=== PATIENT | male | born 1955 | race Caucasian/White ===

== ENCOUNTER 2019-02-21 07:01 | Day surgery (SDC) | payer MEDICARE, OTHER ==
[2019-02-21 07:52] VITALS: BMI 27.3
[2019-02-21 10:10] VITALS: TEMP 98
[2019-02-21 13:57] VITALS: BP 137/76; PULSE 67
--- NOTE | 2019-02-23 13:50 | PATH ---
Surgical Pathology Report Patient Name: DAREN GUZMAN [facility]. Rec. #: [id number] /Age/Gender: 1955 (Age: 63) / M Account: [id number] Location: [facility]-ENDOSCOPY Taken: 02/21/2019 Received: 02/21/2019 Reported: 02/23/2019 Physicians: Umang Thomson M.D. Specimen(s) Received A: SPLENIC FLEXURE B: TRANSVERSE COLON C: RECTOSIGMOID COLON D: HEPATIC FLEXURE Clinical History Screening Final Diagnosis A. SPLENIC FLEXURE POLYP, POLYPECTOMY: TUBULOVILLOUS ADENOMA. B. TRANSVERSE COLON POLYP, POLYPECTOMY: TUBULOVILLOUS ADENOMA. C. RECTOSIGMOID COLON POLYP, POLYPECTOMY: TUBULOVILLOUS ADENOMA. D. HEPATIC FLEXURE POLYP, POLYPECTOMY: TUBULOVILLOUS ADENOMA, MULTIPLE FRAGMENTS. Note: Intradepartmental case reviewed with concordance on diagnosis. Electronically Signed Brian Bernard M.D. Gross Description A. Received in formalin labeled "polyps at splenic flexure," is a 2.3 x 1.5 x 0.3 cm aggregate of church, irregular to polypoid portions of soft tissue. The formalin is filtered and the specimen is entirely submitted in one cassette. B. Received in formalin, labeled "polyp transverse colon" is a church, irregular portion of soft tissue measuring 0.2 cm. in greatest dimension. The specimen is submitted in toto in one cassette. C. Received in formalin labeled "polyp rectosigmoid," is a 2.2 x 1.7 x 0.6 cm church, polypoid portion of soft tissue. The base is inked blue and the specimen is bisected. The specimen is entirely submitted in 2 cassettes. D. Received in formalin labeled "polyp hepatic flexure," are 3 church, polypoid portions of soft tissue ranging from 1.2 x 0.8 x 0.6 cm to 1.7 x 1.3 x 0.6 cm. The specimens are sectioned and entirely submitted in 3 cassettes as follows: 1-3-one bisected polyp each (#2 and #3 broke apart upon sectioning). DL/02/21/2019 saudi02/21/2019
== END 2019-02-21 11:45 | disposition home or self-care (01) ==
LOC: JASU-ENDO 07:01
PROVIDERS: ATTEND Internal Medicine Gastroenterology
PROC: 0DBL8ZX Excision of Transverse Colon, Via Natural or Artificial Opening Endoscopic, Diagnostic (ICD-10-PCS; 2019-02-21)
PROC: 3E0H8GC Introduction of Other Therapeutic Substance into Lower GI, Via Natural or Artificial Opening Endoscopic (ICD-10-PCS; 2019-02-21)
PROC: 0DBN8ZX Excision of Sigmoid Colon, Via Natural or Artificial Opening Endoscopic, Diagnostic (ICD-10-PCS; principal; 2019-02-21 09:00)
DX: Z51.11 Encounter for antineoplastic chemotherapy (principal); D37.4 Neoplasm of uncertain behavior of colon; I10 Essential (primary) hypertension; E11.9 Type 2 diabetes mellitus without complications; J44.9 Chronic obstructive pulmonary disease, unspecified
CPT/HCPCS: 82962; 88305-TC

== ENCOUNTER 2019-05-02 06:35 | Day surgery (SDC) | payer MEDICARE, OTHER ==
[2019-05-02 07:41] VITALS: TEMP 97.8; BMI 27.3
[2019-05-02 10:03] VITALS: BP 167/79; PULSE 61
--- NOTE | 2019-05-03 15:24 | PATH ---
Surgical Pathology Report Patient Name: DAREN GUZMAN [facility]. Rec. #: [id number] /Age/Gender: 1955 (Age: 63) / M Account: [id number] Location: U-ENDOSCOPY Taken: 05/02/2019 Received: 05/02/2019 Reported: 05/03/2019 Physicians: Umang Thomson M.D. Specimen(s) Received A: BX LEFT COLON POLYP B: SPLENIC FLEXURE POLYP BIOPSY C: BX HEPATIC FLEXURE POLYP Clinical History History of large colonic polyp Postoperative diagnosis: Colonic polyps Final Diagnosis A. LEFT COLON POLYP, POLYPECTOMY: TUBULOVILLOUS ADENOMA. B. SPLENIC FLEXURE POLYP, POLYPECTOMY: TUBULAR ADENOMA. C. HEPATIC FLEXURE POLYP, POLYPECTOMY: TUBULOVILLOUS ADENOMA. Electronically Signed Brian Bernard M.D. Gross Description A. Received in formalin, labeled "left colon polyp" is a church, polypoid portion of soft tissue measuring 0.9 cm. in greatest dimension. The specimen is submitted in toto in one cassette. B. Received in formalin, labeled "splenic flexure polyp" is a church, polypoid portion of soft tissue measuring 0.8 cm. in greatest dimension. The specimen is submitted in toto in one cassette. C. Received in formalin labeled "hepatic flexure polyp," is a 2.3 x 2.2 x 0.3 cm aggregate of church, irregular to polypoid soft tissue fragments. The formalin is filtered and the specimen is entirely submitted in one cassette. /05/02/2019 saudi05/02/2019
== END 2019-05-02 09:55 | disposition home or self-care (01) ==
LOC: JASU-ENDO 06:35
PROVIDERS: ATTEND Internal Medicine Gastroenterology
PROC: 0DBL8ZX Excision of Transverse Colon, Via Natural or Artificial Opening Endoscopic, Diagnostic (ICD-10-PCS; 2019-05-02)
PROC: 3E0H8GC Introduction of Other Therapeutic Substance into Lower GI, Via Natural or Artificial Opening Endoscopic (ICD-10-PCS; 2019-05-02)
PROC: 0DBG8ZX Excision of Left Large Intestine, Via Natural or Artificial Opening Endoscopic, Diagnostic (ICD-10-PCS; principal; 2019-05-02 08:00)
DX: D12.3 Benign neoplasm of transverse colon (principal); D12.4 Benign neoplasm of descending colon; Z86.010 Personal history of colon polyps; E11.9 Type 2 diabetes mellitus without complications; Z79.84 Long term (current) use of oral hypoglycemic drugs; I10 Essential (primary) hypertension; J44.9 Chronic obstructive pulmonary disease, unspecified; I25.2 Old myocardial infarction
CPT/HCPCS: 88305-TC

== ENCOUNTER 2021-04-19 10:25 | Inpatient (IN) | payer MEDICARE, OTHER ==
[2021-04-19 11:52] LABS: BASO % 1.2 % (0-2.0); HEMATOCRIT 36.1 % (35.4-49); LYMPH % 14.3 % (8-40); MCH 26.8 pg (25.7-33.7); MCHC 33.2 g/dl (32.0-35.9); MEAN CELL VOLUME 80.7 fl (80-96); MEAN PLT VOLUME 7.8 fl (7.5-11.1); MONO % 6.4 % (3.8-10.2); NEUT % 77.1 % (42.8-82.8); PLATELET COUNT 283 10^3/uL (134-434); RBC 4.48 M/mm3 (4.00-5.60); RDW 13.1 % (11.9-15.9); WHITE BLOOD COUNT 8.9 K/mm3 (4.0-10.0)
[2021-04-19 12:12] LABS: CHLORIDE 94 mmol/L (98-107); SODIUM 133 mmol/L (136-145)
[2021-04-19 12:14] LABS: BLOOD UREA NITROGEN 24.7 mg/dL (7-18); CALCIUM 8.7 mg/dL (8.5-10.1)
[2021-04-19 12:15] LABS: ANION GAP 8 MMOL/L (8-16); CO2 31 mmol/L (21-32)
[2021-04-19 12:18] LABS: CREATININE 1.8 mg/dL (0.55-1.3); SGOT/AST 10 U/L (15-37); SGPT/ALT 17 U/L (13-61)
[2021-04-19 12:20] LABS: BILIRUBIN,TOTAL 0.3 mg/dL (0.2-1)
[2021-04-19 12:21] LABS: ALK PHOS 109 U/L (45-117)
[2021-04-19 12:23] LABS: GLUCOSE,RANDOM 472 mg/dL (74-106)
[2021-04-19] MEDS ORDERED: PIPERACILLIN/TAZOB 3.375 GM 3.375 GM in DEXTROSE 5%-WATER - 50 ML IVPB ONE (12:28)
[2021-04-19] MEDS ORDERED: VANCOMYCIN 1 GM in D5W (PRE-DOCKED) 1,000 MG/250 ML IVPB ONE (12:28)
[2021-04-19] MEDS ORDERED: LACTATED RINGERS SOLUTION 1000 ML INFUS.BAG IV ONE (12:28)
[2021-04-19 12:30] LABS: ERYTHROCYTE SEDIMENTATION RATE 70 mm/hr (0-20)
[2021-04-19] MEDS ORDERED: PIPERACILLIN/TAZOB 3.375 GM 3.375 GM/50 ML BAG IVPB ONE (12:44)
[2021-04-19] MEDS ORDERED: VANCOMYCIN 1 GRAM (PRE-DOCKED) 1,000 MG/250 ML BAG IVPB ONE (12:44)
[2021-04-19 12:53] LABS: ANISOCYTOSIS 1+; MACROCYTOSIS 0; PLATELET ESTIMATE NORMAL
[2021-04-19] MEDS ORDERED: INSULIN REGULAR HUMAN 100 UNITS/ML *VIAL SQ ONE ×2 (13:29→15:34)
[2021-04-19] MEDS ORDERED: SODIUM CHLORIDE 0.9% 500 ML INFUS.BAG IV ONE (15:34)
[2021-04-19 17:27] LABS: URINE APPEARANCE CLEAR; URINE BILIRUBIN NEGATIVE (NEGATIVE); URINE COLOR YELLOW; URINE GLUCOSE (UA) 3+ (NEGATIVE); URINE KETONE NEGATIVE (NEGATIVE); URINE LEUK ESTERASE NEGATIVE (NEGATIVE); URINE NITRITE NEGATIVE (NEGATIVE); URINE PROTEIN TRACE (NEGATIVE); URINE UROBILINOGEN 0.2 mg/dL (0.2-1.0)
[2021-04-19] MEDS: SODIUM CHLORIDE 1,000 ML IV SCH (17:40)
[2021-04-19] MEDS: ACETAMINOPHEN 325 MG TABLET (FP) PO PRN (18:19)
[2021-04-19] MEDS ORDERED: ALBUTEROL SO4 HFA INHALER IH PRN ×2 (19:28→22:00)
[2021-04-19] MEDS: amLODIPine BESYLATE 5 MG TABLET (FP) PO SCH (19:50)
[2021-04-19] MEDS ORDERED: INSULIN (NOVOLOG) ASPART 100 UNITS/ML 10ML VIAL ONE (21:14)
[2021-04-19] MEDS: GABAPENTIN 300 MG CAPSULE PO SCH (21:29)
[2021-04-19] MEDS: HEPARIN NA (PORCINE) 5,000 UNITS/ML 1ML VIAL SQ SCH (21:30)
[2021-04-19] MEDS: INSULIN SLIDING SCALE (NOVOLOG) 1 VIAL SQ SCH (21:31)
[2021-04-20] MEDS: ACETAMINOPHEN 325 MG TABLET (FP) PO PRN ×3 (03:32→21:36)
[2021-04-20] MEDS: SODIUM CHLORIDE 1,000 ML IV SCH (06:15)
[2021-04-20] MEDS: INSULIN SLIDING SCALE (NOVOLOG) 1 VIAL SQ SCH ×4 (06:21→21:38)
[2021-04-20] MEDS: GABAPENTIN 300 MG CAPSULE PO SCH ×3 (06:21→21:36)
[2021-04-20 09:17] LABS: HEMATOCRIT 32.6 % (35.4-49); MCHC 33.8 g/dl (32.0-35.9); MEAN CELL VOLUME 79.6 fl (80-96); MEAN PLT VOLUME 7.7 fl (7.5-11.1); PLATELET COUNT 263 10^3/uL (134-434); RBC 4.09 M/mm3 (4.00-5.60); RDW 13.3 % (11.9-15.9); WHITE BLOOD COUNT 7.4 K/mm3 (4.0-10.0)
[2021-04-20 09:33] LABS: CALCIUM 8.5 mg/dL (8.5-10.1)
[2021-04-20 09:34] LABS: ALBUMIN 2.6 g/dl (3.4-5.0); BLOOD UREA NITROGEN 17.4 mg/dL (7-18)
[2021-04-20] MEDS: ASPIRIN COATED 81 MG TABLET.EC PO SCH (09:39)
[2021-04-20] MEDS: LISINOPRIL 20 MG TABLET PO SCH (09:39)
[2021-04-20] MEDS: amLODIPine BESYLATE 5 MG TABLET (FP) PO SCH (09:39)
[2021-04-20] MEDS: HEPARIN NA (PORCINE) 5,000 UNITS/ML 1ML VIAL SQ SCH ×2 (09:39→21:40)
[2021-04-20] MEDS: ATORVASTATIN CA 40 MG TABLET (FP) PO SCH (09:39)
[2021-04-20] MEDS: HYDROCHLOROTHIAZIDE 25 MG TABLET (FP) PO SCH (09:39)
[2021-04-20] MEDS: CEFAZOLIN 1 GM/D5W 1 GM/50 ML BAG IVPB SCH ×2 (09:40→21:36)
[2021-04-20 09:42] LABS: TOT PROT 6.3 g/dl (6.4-8.2)
[2021-04-20 09:49] LABS: BILIRUBIN,TOTAL 0.6 mg/dL (0.2-1)
[2021-04-20] MEDS ORDERED: PATIENT'S OWN MEDICATION (NON-FORMULARY) (Dapagliflozin Propanediol [Farxiga] 10 MG Tablet PO SCH (10:00)
[2021-04-20] MEDS ORDERED: POTASSIUM CHLORIDE ORAL LIQUID 20 MEQ/15 ML PO ONE ×2 (10:26→13:38)
[2021-04-20] MEDS ORDERED: traMADol HCL 50 MG TABLET PO ONE (12:21)
[2021-04-20] MEDS ORDERED: INSULIN (NOVOLOG) ASPART 100 UNITS/ML 10ML VIAL ONE (21:32)
[2021-04-21] MEDS: ACETAMINOPHEN 325 MG TABLET (FP) PO PRN (03:25)
[2021-04-21] MEDS: GABAPENTIN 300 MG CAPSULE PO SCH ×3 (06:06→21:12)
[2021-04-21] MEDS: INSULIN SLIDING SCALE (NOVOLOG) 1 VIAL SQ SCH ×4 (06:32→21:11)
[2021-04-21 07:29] LABS: HEMATOCRIT 32.4 % (35.4-49); HEMOGLOBIN 10.9 GM/dL (11.7-16.9); MCHC 33.6 g/dl (32.0-35.9); MEAN CELL VOLUME 80.5 fl (80-96); MEAN PLT VOLUME 7.6 fl (7.5-11.1); PLATELET COUNT 260 10^3/uL (134-434); RBC 4.03 M/mm3 (4.00-5.60); RDW 12.9 % (11.9-15.9); WHITE BLOOD COUNT 7.8 K/mm3 (4.0-10.0)
[2021-04-21 07:37] LABS: ALBUMIN 2.5 g/dl (3.4-5.0); BLOOD UREA NITROGEN 17.7 mg/dL (7-18); CALCIUM 8.9 mg/dL (8.5-10.1)
[2021-04-21 07:40] LABS: CREATININE 1.1 mg/dL (0.55-1.3)
[2021-04-21 07:42] LABS: BILIRUBIN,TOTAL 0.8 mg/dL (0.2-1); TOT PROT 6.4 g/dl (6.4-8.2)
[2021-04-21] MEDS ORDERED: POTASSIUM CHLORIDE TABS 10 MEQ TABLET.ER (FP) PO ONE (07:53)
[2021-04-21] MEDS: CEFAZOLIN 1 GM/D5W 1 GM/50 ML BAG IVPB SCH (10:20)
[2021-04-21] MEDS: HEPARIN NA (PORCINE) 5,000 UNITS/ML 1ML VIAL SQ SCH ×2 (10:20→21:11)
[2021-04-21] MEDS: traMADol HCL 50 MG TABLET PO PRN ×2 (10:22→14:55)
[2021-04-21] MEDS: amLODIPine BESYLATE 5 MG TABLET (FP) PO SCH (10:23)
[2021-04-21] MEDS: LISINOPRIL 20 MG TABLET PO SCH (10:23)
[2021-04-21] MEDS: HYDROCHLOROTHIAZIDE 25 MG TABLET (FP) PO SCH (10:23)
[2021-04-21] MEDS: ATORVASTATIN CA 40 MG TABLET (FP) PO SCH (10:23)
[2021-04-21] MEDS: ASPIRIN COATED 81 MG TABLET.EC PO SCH (10:23)
[2021-04-21] MEDS ORDERED: PT OWN MED DRAWER 7, Y5N ONE (11:25)
[2021-04-21] MEDS: COLLAGENASE CLOSTRIDIUM HIST. 30 GRAMS TUBE TP SCH (11:29)
[2021-04-21] MEDS ORDERED: POTASSIUM CHLORIDE TABS 20 MEQ TABLET.ER (FP) PO ONE (12:27)
[2021-04-21] MEDS: CEFAZOLIN 2 GM/D5W 2 GM/50 ML ML IVPB SCH (18:28)
[2021-04-21] MEDS ORDERED: ATORVASTATIN CA 40 MG TABLET (FP) PO SCH (23:31)
[2021-04-22] MEDS: CEFAZOLIN 2 GM/D5W 2 GM/50 ML ML IVPB SCH ×3 (01:02→17:26)
[2021-04-22] MEDS: ACETAMINOPHEN 325 MG TABLET (FP) PO PRN ×3 (02:42→21:14)
[2021-04-22] MEDS: GABAPENTIN 300 MG CAPSULE PO SCH ×3 (05:53→21:14)
[2021-04-22] MEDS: INSULIN SLIDING SCALE (NOVOLOG) 1 VIAL SQ SCH ×4 (06:01→21:15)
[2021-04-22] MEDS: INSULIN (LEVEMIR) 100 UNITS/ML UNITS SQ SCH (06:01)
[2021-04-22] MEDS: traMADol HCL 50 MG TABLET PO PRN (08:09)
[2021-04-22] MEDS: HEPARIN NA (PORCINE) 5,000 UNITS/ML 1ML VIAL SQ SCH ×2 (09:48→21:14)
[2021-04-22] MEDS: ASPIRIN COATED 81 MG TABLET.EC PO SCH (09:48)
[2021-04-22] MEDS: amLODIPine BESYLATE 5 MG TABLET (FP) PO SCH (09:49)
[2021-04-22] MEDS: HYDROCHLOROTHIAZIDE 25 MG TABLET (FP) PO SCH (09:49)
[2021-04-22] MEDS: LISINOPRIL 20 MG TABLET PO SCH (09:49)
[2021-04-22 10:12] LABS: HEMATOCRIT 33.5 % (35.4-49); MCH 26.5 pg (25.7-33.7); MCHC 32.9 g/dl (32.0-35.9); MEAN CELL VOLUME 80.3 fl (80-96); MEAN PLT VOLUME 8.1 fl (7.5-11.1); PLATELET COUNT 265 10^3/uL (134-434); RBC 4.17 M/mm3 (4.00-5.60); RDW 12.7 % (11.9-15.9); WHITE BLOOD COUNT 7.1 K/mm3 (4.0-10.0)
[2021-04-22 10:37] LABS: BLOOD UREA NITROGEN 21.7 mg/dL (7-18); CALCIUM 8.7 mg/dL (8.5-10.1); MAGNESIUM 2.2 mg/dL (1.8-2.4)
[2021-04-22 10:41] LABS: CREATININE 1.1 mg/dL (0.55-1.3)
[2021-04-22] MEDS: COLLAGENASE CLOSTRIDIUM HIST. 30 GRAMS TUBE TP SCH (11:36)
[2021-04-22] MEDS ORDERED: SODIUM CHLORIDE 1,000 ML IV SCH (16:30)
[2021-04-23] MEDS: CEFAZOLIN 2 GM/D5W 2 GM/50 ML ML IVPB SCH ×3 (01:09→17:34)
[2021-04-23] MEDS: GABAPENTIN 300 MG CAPSULE PO SCH ×3 (06:05→21:10)
[2021-04-23] MEDS: INSULIN (LEVEMIR) 100 UNITS/ML UNITS SQ SCH (06:05)
[2021-04-23] MEDS: INSULIN SLIDING SCALE (NOVOLOG) 1 VIAL SQ SCH ×4 (06:12→21:20)
[2021-04-23] MEDS: LISINOPRIL 20 MG TABLET PO SCH (09:32)
[2021-04-23] MEDS: amLODIPine BESYLATE 5 MG TABLET (FP) PO SCH (09:32)
[2021-04-23] MEDS: ASPIRIN COATED 81 MG TABLET.EC PO SCH (09:32)
[2021-04-23] MEDS: HEPARIN NA (PORCINE) 5,000 UNITS/ML 1ML VIAL SQ SCH ×2 (09:32→21:10)
[2021-04-23] MEDS ORDERED: HEPARIN NA (PORCINE) 5,000 UNITS/ML 1ML VIAL ONE ×3 (13:50→16:05)
[2021-04-23] MEDS ORDERED: LIDOCAINE HCL 1%, 10 MG/ML (20ML VIAL) ONE (13:50)
[2021-04-23] MEDS: COLLAGENASE CLOSTRIDIUM HIST. 30 GRAMS TUBE TP SCH (14:23)
[2021-04-23] MEDS ORDERED: PROPOFOL 20 ML ONE ×2 (14:47)
[2021-04-23] MEDS ORDERED: LIDOCAINE HCL/PF 2% SDV 5ML VIAL ONE (14:48)
[2021-04-23] MEDS ORDERED: IOHEXOL 300 MG/ML INFUS..BTL IV ONE (15:33)
[2021-04-23] MEDS ORDERED: LIDOCAINE HCL 1% PRESERVATIVE FREE - 30ML VIAL IJ ONE (15:33)
[2021-04-23] MEDS ORDERED: HEPARIN NA (PORCINE) 5,000 UNITS/ML 1ML VIAL SQ ONE (15:33)
[2021-04-23] MEDS ORDERED: ceFAZolin SODIUM 1 GM VIAL ONE (16:05)
[2021-04-23] MEDS ORDERED: ONDANSETRON 4 MG/2 ML VIAL IVPUSH PRN (16:09)
[2021-04-23] MEDS: CLOPIDOGREL BISULFATE 75 MG TABLET (FP) PO SCH (17:37)
[2021-04-23] MEDS ORDERED: traMADol HCL 50 MG TABLET PO PRN (20:42)
[2021-04-23] MEDS ORDERED: ALBUTEROL SO4 HFA INHALER IH PRN (20:42)
[2021-04-23] MEDS: ATORVASTATIN CA 40 MG TABLET (FP) PO SCH (21:10)
[2021-04-23] MEDS: ACETAMINOPHEN 325 MG TABLET (FP) PO PRN (21:10)
[2021-04-23 21:59] VITALS: BMI 27.3
[2021-04-24] MEDS: CEFAZOLIN 2 GM/D5W 2 GM/50 ML ML IVPB SCH ×2 (02:39→10:06)
[2021-04-24] MEDS: INSULIN (LEVEMIR) 100 UNITS/ML UNITS SQ SCH (06:18)
[2021-04-24] MEDS: GABAPENTIN 300 MG CAPSULE PO SCH ×3 (06:18→21:27)
[2021-04-24] MEDS: INSULIN SLIDING SCALE (NOVOLOG) 1 VIAL SQ SCH ×4 (06:20→21:29)
[2021-04-24] MEDS: ACETAMINOPHEN 325 MG TABLET (FP) PO PRN ×3 (07:45→21:23)
[2021-04-24 07:52] LABS: HEMATOCRIT 33.9 % (35.4-49); MCH 26.4 pg (25.7-33.7); MCHC 32.4 g/dl (32.0-35.9); MEAN CELL VOLUME 81.4 fl (80-96); MEAN PLT VOLUME 8.1 fl (7.5-11.1); PLATELET COUNT 293 10^3/uL (134-434); RBC 4.17 M/mm3 (4.00-5.60); RDW 12.7 % (11.9-15.9); WHITE BLOOD COUNT 7.5 K/mm3 (4.0-10.0)
[2021-04-24] MEDS ORDERED: morphine SULFATE 4 MG/ML VIAL IVPUSH ONE (07:56)
[2021-04-24 07:59] LABS: ALBUMIN 2.4 g/dl (3.4-5.0); BLOOD UREA NITROGEN 17.8 mg/dL (7-18); CALCIUM 9.2 mg/dL (8.5-10.1)
[2021-04-24 08:01] LABS: CALCIUM 9.1 mg/dL (8.5-10.1)
[2021-04-24 08:02] LABS: BLOOD UREA NITROGEN 18.1 mg/dL (7-18)
[2021-04-24 08:03] LABS: CREATININE 1.1 mg/dL (0.55-1.3)
[2021-04-24 08:04] LABS: BILIRUBIN,TOTAL 0.4 mg/dL (0.2-1)
[2021-04-24] MEDS ORDERED: PT OWN MED DRAWER 7, Y5N ONE (09:52)
[2021-04-24] MEDS: ASPIRIN COATED 81 MG TABLET.EC PO SCH (10:07)
[2021-04-24] MEDS: CLOPIDOGREL BISULFATE 75 MG TABLET (FP) PO SCH (10:07)
[2021-04-24] MEDS: HEPARIN NA (PORCINE) 5,000 UNITS/ML 1ML VIAL SQ SCH ×2 (10:07→21:27)
[2021-04-24] MEDS: amLODIPine BESYLATE 5 MG TABLET (FP) PO SCH (10:07)
[2021-04-24] MEDS: LISINOPRIL 20 MG TABLET PO SCH (10:07)
[2021-04-24] MEDS: COLLAGENASE CLOSTRIDIUM HIST. 30 GRAMS TUBE TP SCH (10:08)
[2021-04-24] MEDS ORDERED: INSULIN (NOVOLOG) ASPART 100 UNITS/ML 10ML VIAL ONE (11:21)
[2021-04-24] MEDS ORDERED: VANCOMYCIN/WATER BAGS 1,250 MG/250 ML BAG IVPB SCH (15:30)
[2021-04-24] MEDS: VANCOMYCIN 1 GRAM (PRE-DOCKED) 1,000 MG/250 ML BAG IVPB SCH (16:09)
[2021-04-24] MEDS: ATORVASTATIN CA 40 MG TABLET (FP) PO SCH (21:27)
[2021-04-24] MEDS: CEFEPIME 2 GM in DEXTROSE 5%-WATER 100 ML IVPB SCH (21:29)
[2021-04-24] MEDS ORDERED: CEFEPIME HCL/D5W 2 GM/50 ML BAG IVPB SCH ×2 (22:00)
[2021-04-25] MEDS: VANCOMYCIN 1 GRAM (PRE-DOCKED) 1,000 MG/250 ML BAG IVPB SCH ×2 (04:25→15:39)
[2021-04-25] MEDS: GABAPENTIN 300 MG CAPSULE PO SCH ×2 (06:21→15:39)
[2021-04-25] MEDS: INSULIN (LEVEMIR) 100 UNITS/ML UNITS SQ SCH (06:21)
[2021-04-25] MEDS: INSULIN SLIDING SCALE (NOVOLOG) 1 VIAL SQ SCH ×3 (06:22→16:28)
[2021-04-25 06:40] VITALS: TEMP 98.3
[2021-04-25 07:54] LABS: ALBUMIN 2.3 g/dl (3.4-5.0); CALCIUM 8.7 mg/dL (8.5-10.1)
[2021-04-25 07:55] LABS: BLOOD UREA NITROGEN 18.6 mg/dL (7-18)
[2021-04-25 07:57] LABS: CREATININE 0.9 mg/dL (0.55-1.3)
[2021-04-25 07:59] LABS: BILIRUBIN,TOTAL 0.5 mg/dL (0.2-1); TOT PROT 6.7 g/dl (6.4-8.2)
[2021-04-25] MEDS ORDERED: PT OWN MED DRAWER 7, Y5N ONE (09:19)
[2021-04-25] MEDS: ASPIRIN COATED 81 MG TABLET.EC PO SCH (09:21)
[2021-04-25] MEDS: amLODIPine BESYLATE 5 MG TABLET (FP) PO SCH (09:21)
[2021-04-25] MEDS: CLOPIDOGREL BISULFATE 75 MG TABLET (FP) PO SCH (09:21)
[2021-04-25] MEDS: LISINOPRIL 20 MG TABLET PO SCH (09:21)
[2021-04-25] MEDS: HEPARIN NA (PORCINE) 5,000 UNITS/ML 1ML VIAL SQ SCH (09:22)
[2021-04-25] MEDS: COLLAGENASE CLOSTRIDIUM HIST. 30 GRAMS TUBE TP SCH (09:22)
[2021-04-25] MEDS: CEFEPIME 2 GM in DEXTROSE 5%-WATER 100 ML IVPB SCH (09:22)
[2021-04-25] MEDS ORDERED: DEXTROSE 5%-WATER 100 ML IVPB ONE ×2 (10:28→17:18)
[2021-04-25] MEDS ORDERED: PIPERACILLIN/TAZOBACTAM 4.5 GM VIAL IVPB ONE ×2 (10:28→17:18)
[2021-04-25] MEDS: PIPERACILLIN/TAZOB 4.5 GM 4.5 GM in DEXTROSE 5%-WATER 100 ML IVPB SCH ×2 (10:30→17:21)
[2021-04-25 14:20] VITALS: BP 133/75; PULSE 76
== END 2021-04-25 20:16 | DRG 253 ==
LOC: JER 10:25 → JERBED 14:04 → J6S 15:57
PROVIDERS: ADMIT Family Medicine; ATTEND Family Medicine
PROC: B40DYZZ Plain Radiography of Aorta and Bilateral Lower Extremity Arteries using Other Contrast (ICD-10-PCS; 2021-04-23)
PROC: 047M3ZZ Dilation of Right Popliteal Artery, Percutaneous Approach (ICD-10-PCS; principal; 2021-04-23 14:30)
PROC: 02HV33Z Insertion of Infusion Device into Superior Vena Cava, Percutaneous Approach (ICD-10-PCS; 2021-04-25)
PROC: B518ZZA Fluoroscopy of Superior Vena Cava, Guidance (ICD-10-PCS; 2021-04-25)
DX: E11.51 Type 2 diabetes mellitus with diabetic peripheral angiopathy without gangrene (principal); N17.9 Acute kidney failure, unspecified; L97.518 Non-pressure chronic ulcer of other part of right foot with other specified severity; L03.115 Cellulitis of right lower limb; M86.9 Osteomyelitis, unspecified; E87.1 Hypo-osmolality and hyponatremia; I10 Essential (primary) hypertension; I25.2 Old myocardial infarction; E78.00 Pure hypercholesterolemia, unspecified; I12.9 Hypertensive chronic kidney disease with stage 1 through stage 4 chronic kidney disease, or unspecified chronic kidney disease; E11.22 Type 2 diabetes mellitus with diabetic chronic kidney disease; N18.30 Chronic kidney disease, stage 3 unspecified; I25.10 Atherosclerotic heart disease of native coronary artery without angina pectoris; E78.5 Hyperlipidemia, unspecified; E11.621 Type 2 diabetes mellitus with foot ulcer; E11.65 Type 2 diabetes mellitus with hyperglycemia; E11.69 Type 2 diabetes mellitus with other specified complication; D64.9 Anemia, unspecified; Z79.4 Long term (current) use of insulin
CPT/HCPCS: 36415; 36569; 73630-TC-RT-FY; 73721-RT-TC; 76000-TC-FY; 80048; 80053; 81003; 82570; 82962; 83036; 83735; 84156; 84436; 84443; 85025; 85027; 85651; 86140; 87040; 93005; 93010; 93922; 93925-TC; 93970-TC; 94760; 99285-25; C9803; J1644; U0003; U0005

== ENCOUNTER 2021-05-08 11:51 | Inpatient (IN) | payer MEDICARE, OTHER ==
[2021-05-08 12:10] VITALS: BMI 26.6
[2021-05-08 13:58] LABS: EOS % 2.8 % (0-4.5); HEMOGLOBIN 11.4 GM/dL (11.7-16.9); LYMPH % 28.8 % (8-40); MCH 26.3 pg (25.7-33.7); MCHC 32.5 g/dl (32.0-35.9); MEAN CELL VOLUME 80.7 fl (80-96); MEAN PLT VOLUME 7.5 fl (7.5-11.1); MONO % 7.9 % (3.8-10.2); NEUT % 59.5 % (42.8-82.8); PLATELET COUNT 347 10^3/uL (134-434); RBC 4.33 M/mm3 (4.00-5.60); RDW 13.1 % (11.9-15.9); WHITE BLOOD COUNT 4.7 K/mm3 (4.0-10.0)
[2021-05-08 14:04] LABS: INR 1.09 (0.83-1.09); PROTHROMBIN TIME (PATIENT) 13.4 SEC (9.7-13.0)
[2021-05-08 14:07] LABS: ACTIVATED PTT 32.1 SECONDS (25.2-36.5)
[2021-05-08 14:24] LABS: CALCIUM 9.4 mg/dL (8.5-10.1)
[2021-05-08] MEDS ORDERED: PIPERACILLIN/TAZOB 4.5 GM 4.5 GM in DEXTROSE 5%-WATER 100 ML IVPB ONE (14:48)
[2021-05-08] MEDS ORDERED: VANCOMYCIN 1 GM in D5W (PRE-DOCKED) 1,000 MG/250 ML IVPB ONE (14:50)
[2021-05-08 15:09] LABS: CREATININE 1.3 mg/dL (0.55-1.3)
[2021-05-08 15:11] LABS: BILIRUBIN,TOTAL 0.5 mg/dL (0.2-1); TOT PROT 7.8 g/dl (6.4-8.2)
[2021-05-08] MEDS ORDERED: INSULIN SLIDING SCALE (NOVOLOG) 1 VIAL SQ ONE (23:42)
[2021-05-08] MEDS: INSULIN SLIDING SCALE (NOVOLOG) 1 VIAL SQ SCH (23:45)
[2021-05-09] MEDS ORDERED: VANCOMYCIN/WATER 1,250 MG/250 ML BAG IVPB SCH (04:00)
[2021-05-09] MEDS: VANCOMYCIN/WATER 1,250 MG/250 ML BAG IVPB SCH ×2 (04:30→17:37)
[2021-05-09] MEDS: INSULIN SLIDING SCALE (NOVOLOG) 1 VIAL SQ SCH ×4 (06:15→22:06)
[2021-05-09] MEDS ORDERED: traMADol HCL 50 MG TABLET PO PRN (07:51)
[2021-05-09] MEDS ORDERED: ACETAMINOPHEN 325 MG TABLET (FP) PO PRN (07:51)
[2021-05-09] MEDS ORDERED: morphine SULFATE 4 MG/ML VIAL IVPUSH PRN (07:51)
[2021-05-09 08:41] LABS: BASO % 1.2 % (0-2.0); EOS % 4.7 % (0-4.5); HEMATOCRIT 33.6 % (35.4-49); HEMOGLOBIN 11.2 GM/dL (11.7-16.9); LYMPH % 26.6 % (8-40); MCH 26.3 pg (25.7-33.7); MCHC 33.2 g/dl (32.0-35.9); MEAN CELL VOLUME 79.2 fl (80-96); MEAN PLT VOLUME 7.5 fl (7.5-11.1); MONO % 9.2 % (3.8-10.2); NEUT % 58.3 % (42.8-82.8); PLATELET COUNT 310 10^3/uL (134-434); RBC 4.25 M/mm3 (4.00-5.60); RDW 13.6 % (11.9-15.9); WHITE BLOOD COUNT 4.6 K/mm3 (4.0-10.0)
[2021-05-09 09:00] LABS: CALCIUM 9.7 mg/dL (8.5-10.1)
[2021-05-09 09:01] LABS: ALBUMIN 2.8 g/dl (3.4-5.0); BLOOD UREA NITROGEN 21.9 mg/dL (7-18); MAGNESIUM 2.3 mg/dL (1.8-2.4)
[2021-05-09 09:04] LABS: CREATININE 1.2 mg/dL (0.55-1.3)
[2021-05-09 09:06] LABS: BILIRUBIN,TOTAL 0.5 mg/dL (0.2-1); TOT PROT 7.4 g/dl (6.4-8.2)
[2021-05-09] MEDS ORDERED: DEXTROSE 5%-WATER - 50 ML IVPB ONE ×2 (11:19→16:59)
[2021-05-09] MEDS ORDERED: PIPERACILLIN/TAZOBACTAM 3.375 GM VIAL IVPB ONE ×2 (11:19→16:59)
[2021-05-09] MEDS: PIPERACILLIN/TAZOB 3.375 GM 3.375 GM in DEXTROSE 5%-WATER - 50 ML IVPB SCH ×2 (11:27→17:11)
[2021-05-09] MEDS ORDERED: PIPERACILLIN/TAZOB 3.375 GM 3.375 GM in DEXTROSE 5%-WATER - 50 ML IVPB SCH (23:24)
[2021-05-09] MEDS ORDERED: PIPERACILLIN/TAZOB 3.375 GM 3.375 GM/50 ML BAG IVPB SCH (23:45)
[2021-05-10] MEDS ORDERED: PIPERACILLIN/TAZOBACTAM 3.375 GM VIAL IVPB ONE ×3 (01:43→16:58)
[2021-05-10] MEDS ORDERED: DEXTROSE 5%-WATER - 50 ML IVPB ONE ×3 (01:44→16:58)
[2021-05-10] MEDS: PIPERACILLIN/TAZOB 3.375 GM 3.375 GM in DEXTROSE 5%-WATER - 50 ML IVPB SCH ×3 (02:15→17:03)
[2021-05-10] MEDS: INSULIN SLIDING SCALE (NOVOLOG) 1 VIAL SQ SCH ×4 (06:05→22:39)
[2021-05-10] MEDS: GABAPENTIN 300 MG CAPSULE PO SCH ×2 (13:16→22:39)
[2021-05-10] MEDS: HEPARIN NA (PORCINE) 5,000 UNITS/ML 1ML VIAL SQ SCH ×2 (13:16→22:39)
[2021-05-10] MEDS ORDERED: NORMAL SALINE FLUSH 0.9% 5 ML SYRINGE IVPUSH PRN ×2 (13:41→13:42)
[2021-05-10] MEDS: METOPROLOL TARTRATE 50 MG TABLET (FP) PO SCH (22:39)
[2021-05-10] MEDS: ATORVASTATIN CA 40 MG TABLET (FP) PO SCH (22:39)
[2021-05-11] MEDS ORDERED: DEXTROSE 5%-WATER - 50 ML IVPB ONE ×3 (02:33→17:36)
[2021-05-11] MEDS ORDERED: PIPERACILLIN/TAZOBACTAM 3.375 GM VIAL IVPB ONE ×3 (02:33→17:35)
[2021-05-11] MEDS: PIPERACILLIN/TAZOB 3.375 GM 3.375 GM in DEXTROSE 5%-WATER - 50 ML IVPB SCH ×3 (02:36→17:45)
[2021-05-11] MEDS: HEPARIN NA (PORCINE) 5,000 UNITS/ML 1ML VIAL SQ SCH (06:48)
[2021-05-11] MEDS: GABAPENTIN 300 MG CAPSULE PO SCH ×3 (06:48→22:02)
[2021-05-11] MEDS: INSULIN SLIDING SCALE (NOVOLOG) 1 VIAL SQ SCH ×4 (06:48→22:06)
[2021-05-11] MEDS ORDERED: PT OWN MED DRAWER 7, Y5N ONE (09:48)
[2021-05-11] MEDS: amLODIPine BESYLATE 5 MG TABLET (FP) PO SCH (09:54)
[2021-05-11] MEDS: METOPROLOL TARTRATE 50 MG TABLET (FP) PO SCH ×2 (09:54→22:02)
[2021-05-11] MEDS: LISINOPRIL 5 MG TABLET PO SCH (09:55)
[2021-05-11 11:22] LABS: INR 1.09 (0.83-1.09); PROTHROMBIN TIME (PATIENT) 13.4 SEC (9.7-13.0)
[2021-05-11] MEDS: ATORVASTATIN CA 40 MG TABLET (FP) PO SCH (22:02)
[2021-05-12] MEDS ORDERED: INSULIN SLIDING SCALE (NOVOLOG) 1 VIAL SQ SCH (00:16)
[2021-05-12] MEDS ORDERED: DEXTROSE 5%-WATER - 50 ML IVPB ONE ×3 (02:54→18:30)
[2021-05-12] MEDS ORDERED: PIPERACILLIN/TAZOBACTAM 3.375 GM VIAL IVPB ONE ×3 (02:54→18:29)
[2021-05-12] MEDS: PIPERACILLIN/TAZOB 3.375 GM 3.375 GM in DEXTROSE 5%-WATER - 50 ML IVPB SCH ×4 (02:58→18:32)
[2021-05-12] MEDS: GABAPENTIN 300 MG CAPSULE PO SCH ×3 (06:39→21:14)
[2021-05-12] MEDS ORDERED: INSULIN (LEVEMIR) 100 UNITS/ML UNITS SQ SCH ×2 (07:00→22:00)
[2021-05-12 08:17] LABS: HEMATOCRIT 33.8 % (35.4-49); HEMOGLOBIN 11.3 GM/dL (11.7-16.9); MCH 26.6 pg (25.7-33.7); MCHC 33.5 g/dl (32.0-35.9); MEAN CELL VOLUME 79.5 fl (80-96); MEAN PLT VOLUME 7.8 fl (7.5-11.1); PLATELET COUNT 257 10^3/uL (134-434); RBC 4.25 M/mm3 (4.00-5.60); RDW 13.5 % (11.9-15.9); WHITE BLOOD COUNT 3.6 K/mm3 (4.0-10.0)
[2021-05-12 08:35] LABS: BLOOD UREA NITROGEN 21.5 mg/dL (7-18); CALCIUM 9.2 mg/dL (8.5-10.1)
[2021-05-12 08:38] LABS: CREATININE 1.4 mg/dL (0.55-1.3)
[2021-05-12] MEDS ORDERED: BUPIVACAINE HCL/PF 0.5% (5MG/ML) 10 ML VIAL ONE (08:49)
[2021-05-12] MEDS ORDERED: LIDOCAINE HCL 1%, 10 MG/ML (20ML VIAL) ONE (08:49)
[2021-05-12] MEDS: LISINOPRIL 5 MG TABLET PO SCH (09:04)
[2021-05-12] MEDS: amLODIPine BESYLATE 5 MG TABLET (FP) PO SCH (09:05)
[2021-05-12] MEDS: METOPROLOL TARTRATE 50 MG TABLET (FP) PO SCH ×2 (09:05→21:14)
[2021-05-12] MEDS ORDERED: BUPIVACAINE HCL/PF 0.5% (5MG/ML) 10 ML VIAL IJ ONE (09:35)
[2021-05-12] MEDS ORDERED: LIDOCAINE HCL 1%, 10 MG/ML (20ML VIAL) INF ONE (09:35)
[2021-05-12] MEDS ORDERED: BACITRACIN 50,000 UNITS VIAL TP ONE (09:44)
[2021-05-12] MEDS ORDERED: NORMAL SALINE FLUSH 0.9% 5 ML SYRINGE IVPUSH PRN (10:16)
[2021-05-12 11:52] LABS: BASO % 1.1 % (0-2.0); EOS % 3.8 % (0-4.5); HEMATOCRIT 33.8 % (35.4-49); HEMOGLOBIN 11.1 GM/dL (11.7-16.9); LYMPH % 31.5 % (8-40); MCH 26.2 pg (25.7-33.7); MCHC 32.9 g/dl (32.0-35.9); MEAN CELL VOLUME 79.6 fl (80-96); MEAN PLT VOLUME 7.5 fl (7.5-11.1); MONO % 9.9 % (3.8-10.2); NEUT % 53.7 % (42.8-82.8); PLATELET COUNT 262 10^3/uL (134-434); RBC 4.25 M/mm3 (4.00-5.60); RDW 13.4 % (11.9-15.9)
[2021-05-12] MEDS: INSULIN SLIDING SCALE (NOVOLOG) 1 VIAL SQ SCH ×3 (12:04→21:15)
[2021-05-12] MEDS: ACETAMINOPHEN 325 MG TABLET (FP) PO PRN (17:04)
[2021-05-12] MEDS: oxyCODONE HCL 5 MG TABLET PO PRN (18:53)
[2021-05-12] MEDS: ATORVASTATIN CA 40 MG TABLET (FP) PO SCH (21:14)
[2021-05-12] MEDS: INSULIN (LEVEMIR) 100 UNITS/ML UNITS SQ SCH (21:15)
[2021-05-13] MEDS ORDERED: PIPERACILLIN/TAZOBACTAM 3.375 GM VIAL IVPB ONE ×3 (01:06→17:19)
[2021-05-13] MEDS ORDERED: DEXTROSE 5%-WATER - 50 ML IVPB ONE ×3 (01:07→17:20)
[2021-05-13] MEDS: PIPERACILLIN/TAZOB 3.375 GM 3.375 GM in DEXTROSE 5%-WATER - 50 ML IVPB SCH ×3 (01:26→17:26)
[2021-05-13] MEDS: ACETAMINOPHEN 325 MG TABLET (FP) PO PRN ×2 (01:31→20:11)
[2021-05-13] MEDS: INSULIN SLIDING SCALE (NOVOLOG) 1 VIAL SQ SCH ×4 (06:24→21:23)
[2021-05-13] MEDS: INSULIN (LEVEMIR) 100 UNITS/ML UNITS SQ SCH ×2 (06:24→21:23)
[2021-05-13] MEDS: GABAPENTIN 300 MG CAPSULE PO SCH ×3 (06:26→21:26)
[2021-05-13] MEDS: amLODIPine BESYLATE 5 MG TABLET (FP) PO SCH (09:22)
[2021-05-13] MEDS: LISINOPRIL 5 MG TABLET PO SCH (09:22)
[2021-05-13] MEDS: METOPROLOL TARTRATE 50 MG TABLET (FP) PO SCH ×2 (09:22→21:26)
[2021-05-13] MEDS: oxyCODONE HCL 5 MG TABLET PO PRN (09:23)
[2021-05-13 16:53] LABS: HEMATOCRIT 33.6 % (35.4-49); HEMOGLOBIN 11.2 GM/dL (11.7-16.9); MCH 26.4 pg (25.7-33.7); MCHC 33.3 g/dl (32.0-35.9); MEAN CELL VOLUME 79.3 fl (80-96); MEAN PLT VOLUME 7.6 fl (7.5-11.1); PLATELET COUNT 259 10^3/uL (134-434); RBC 4.23 M/mm3 (4.00-5.60); RDW 13.7 % (11.9-15.9); WHITE BLOOD COUNT 5.9 K/mm3 (4.0-10.0)
[2021-05-13 17:18] LABS: ALBUMIN 2.8 g/dl (3.4-5.0); BLOOD UREA NITROGEN 17.9 mg/dL (7-18); CALCIUM 9.1 mg/dL (8.5-10.1)
[2021-05-13 17:21] LABS: CREATININE 1.3 mg/dL (0.55-1.3)
[2021-05-13 17:23] LABS: BILIRUBIN,TOTAL 0.4 mg/dL (0.2-1); TOT PROT 7.1 g/dl (6.4-8.2)
[2021-05-13] MEDS ORDERED: INSULIN (NOVOLOG) ASPART 100 UNITS/ML 10ML VIAL ONE (17:44)
[2021-05-13] MEDS: NORMAL SALINE FLUSH 0.9% 5 ML SYRINGE IVPUSH PRN (20:07)
[2021-05-13] MEDS: ATORVASTATIN CA 40 MG TABLET (FP) PO SCH (21:26)
[2021-05-14] MEDS ORDERED: DEXTROSE 5%-WATER - 50 ML IVPB ONE ×3 (00:58→18:45)
[2021-05-14] MEDS ORDERED: PIPERACILLIN/TAZOBACTAM 3.375 GM VIAL IVPB ONE ×3 (00:58→18:44)
[2021-05-14] MEDS: PIPERACILLIN/TAZOB 3.375 GM 3.375 GM in DEXTROSE 5%-WATER - 50 ML IVPB SCH ×3 (01:18→19:00)
[2021-05-14] MEDS: INSULIN SLIDING SCALE (NOVOLOG) 1 VIAL SQ SCH ×4 (06:02→22:43)
[2021-05-14] MEDS: INSULIN (LEVEMIR) 100 UNITS/ML UNITS SQ SCH ×2 (06:02→22:42)
[2021-05-14] MEDS: GABAPENTIN 300 MG CAPSULE PO SCH ×3 (06:14→22:43)
[2021-05-14] MEDS: amLODIPine BESYLATE 5 MG TABLET (FP) PO SCH (09:30)
[2021-05-14] MEDS: LISINOPRIL 5 MG TABLET PO SCH (09:30)
[2021-05-14] MEDS: METOPROLOL TARTRATE 50 MG TABLET (FP) PO SCH ×2 (09:30→22:43)
[2021-05-14] MEDS: TRIAMCINOLONE ACET 0.1% CREAM 15 GM TUBE TP SCH ×2 (11:48→22:42)
[2021-05-14] MEDS: ACETAMINOPHEN 325 MG TABLET (FP) PO PRN (15:36)
[2021-05-14] MEDS: oxyCODONE HCL 5 MG TABLET PO PRN (19:00)
[2021-05-14] MEDS: ATORVASTATIN CA 40 MG TABLET (FP) PO SCH (22:43)
[2021-05-15] MEDS ORDERED: PIPERACILLIN/TAZOBACTAM 3.375 GM VIAL IVPB ONE ×3 (01:27→16:59)
[2021-05-15] MEDS ORDERED: DEXTROSE 5%-WATER - 50 ML IVPB ONE ×3 (01:27→16:59)
[2021-05-15] MEDS: PIPERACILLIN/TAZOB 3.375 GM 3.375 GM in DEXTROSE 5%-WATER - 50 ML IVPB SCH ×3 (01:34→17:04)
[2021-05-15] MEDS: GABAPENTIN 300 MG CAPSULE PO SCH ×3 (06:40→21:48)
[2021-05-15] MEDS: INSULIN (LEVEMIR) 100 UNITS/ML UNITS SQ SCH ×2 (06:41→21:59)
[2021-05-15] MEDS: INSULIN SLIDING SCALE (NOVOLOG) 1 VIAL SQ SCH ×4 (06:44→21:59)
[2021-05-15 08:39] LABS: HEMATOCRIT 32.2 % (35.4-49); HEMOGLOBIN 10.5 GM/dL (11.7-16.9); MCH 26.3 pg (25.7-33.7); MCHC 32.7 g/dl (32.0-35.9); MEAN CELL VOLUME 80.6 fl (80-96); PLATELET COUNT 227 10^3/uL (134-434); RBC 3.99 M/mm3 (4.00-5.60); RDW 13.4 % (11.9-15.9); WHITE BLOOD COUNT 4.5 K/mm3 (4.0-10.0)
[2021-05-15 09:02] LABS: CALCIUM 9.2 mg/dL (8.5-10.1)
[2021-05-15 09:03] LABS: ALBUMIN 2.6 g/dl (3.4-5.0); BLOOD UREA NITROGEN 17.7 mg/dL (7-18)
[2021-05-15 09:06] LABS: CREATININE 1.3 mg/dL (0.55-1.3)
[2021-05-15 09:08] LABS: BILIRUBIN,TOTAL 0.6 mg/dL (0.2-1); TOT PROT 6.7 g/dl (6.4-8.2)
[2021-05-15] MEDS: amLODIPine BESYLATE 5 MG TABLET (FP) PO SCH (10:43)
[2021-05-15] MEDS: LISINOPRIL 5 MG TABLET PO SCH (10:43)
[2021-05-15] MEDS: METOPROLOL TARTRATE 50 MG TABLET (FP) PO SCH ×2 (10:43→21:48)
[2021-05-15] MEDS: TRIAMCINOLONE ACET 0.1% CREAM 15 GM TUBE TP SCH ×2 (10:44→21:57)
[2021-05-15] MEDS ORDERED: INSULIN (NOVOLOG) ASPART 100 UNITS/ML 10ML VIAL ONE ×2 (17:44→21:07)
[2021-05-15] MEDS: ATORVASTATIN CA 40 MG TABLET (FP) PO SCH (21:48)
[2021-05-16] MEDS ORDERED: PIPERACILLIN/TAZOBACTAM 3.375 GM VIAL IVPB ONE ×2 (02:03→09:30)
[2021-05-16] MEDS ORDERED: DEXTROSE 5%-WATER - 50 ML IVPB ONE ×2 (02:03→09:31)
[2021-05-16] MEDS: PIPERACILLIN/TAZOB 3.375 GM 3.375 GM in DEXTROSE 5%-WATER - 50 ML IVPB SCH ×2 (02:11→09:43)
[2021-05-16] MEDS: NORMAL SALINE FLUSH 0.9% 5 ML SYRINGE IVPUSH PRN (02:20)
[2021-05-16] MEDS: INSULIN SLIDING SCALE (NOVOLOG) 1 VIAL SQ SCH ×3 (06:20→17:20)
[2021-05-16] MEDS: INSULIN (LEVEMIR) 100 UNITS/ML UNITS SQ SCH (06:21)
[2021-05-16] MEDS: GABAPENTIN 300 MG CAPSULE PO SCH ×2 (06:21→15:00)
[2021-05-16] MEDS: amLODIPine BESYLATE 5 MG TABLET (FP) PO SCH (09:43)
[2021-05-16] MEDS: METOPROLOL TARTRATE 50 MG TABLET (FP) PO SCH (09:43)
[2021-05-16] MEDS: LISINOPRIL 5 MG TABLET PO SCH (09:43)
[2021-05-16] MEDS: TRIAMCINOLONE ACET 0.1% CREAM 15 GM TUBE TP SCH (09:48)
[2021-05-16] MEDS ORDERED: VANCOMYCIN HCL 1,500 MG in DEXTROSE 5%-WATER - 500 ML IVPB SCH (14:15)
[2021-05-16] MEDS ORDERED: VANCOMYCIN PREMIX 1.5 GM 1,500 MG/300 ML BAG IVPB SCH (14:39)
[2021-05-16 15:04] VITALS: BP 127/62; PULSE 72; TEMP 98
[2021-05-16] MEDS ORDERED: INSULIN (NOVOLOG) ASPART 100 UNITS/ML 10ML VIAL ONE (17:23)
== END 2021-05-16 20:41 | DRG 617 ==
LOC: JER 11:51 → JERBED 17:06 → J8W 05-09 01:09
PROVIDERS: ADMIT Internal Medicine; ATTEND Family Medicine
PROC: 0QBQ0ZX Excision of Right Toe Phalanx, Open Approach, Diagnostic (ICD-10-PCS; 2021-05-12)
PROC: 0Y6M0Z4 Detachment at Right Foot, Complete 1st Ray, Open Approach (ICD-10-PCS; principal; 2021-05-12 09:30)
DX: E11.69 Type 2 diabetes mellitus with other specified complication (principal); E11.52 Type 2 diabetes mellitus with diabetic peripheral angiopathy with gangrene; L97.518 Non-pressure chronic ulcer of other part of right foot with other specified severity; I96 Gangrene, not elsewhere classified; M86.8X7 Other osteomyelitis, ankle and foot; E11.621 Type 2 diabetes mellitus with foot ulcer; I25.10 Atherosclerotic heart disease of native coronary artery without angina pectoris; L03.031 Cellulitis of right toe; I10 Essential (primary) hypertension; E78.00 Pure hypercholesterolemia, unspecified; D64.9 Anemia, unspecified; I25.2 Old myocardial infarction; E11.65 Type 2 diabetes mellitus with hyperglycemia; B95.2 Enterococcus as the cause of diseases classified elsewhere; B95.1 Streptococcus, group B, as the cause of diseases classified elsewhere; I12.9 Hypertensive chronic kidney disease with stage 1 through stage 4 chronic kidney disease, or unspecified chronic kidney disease; E11.22 Type 2 diabetes mellitus with diabetic chronic kidney disease; N18.30 Chronic kidney disease, stage 3 unspecified; Z89.421 Acquired absence of other right toe(s)
CPT/HCPCS: 36415; 71046-TC-FY; 73630-TC-RT-FY; 80048; 80053; 82962; 83735; 85025; 85027; 85610; 85730; 86850; 86900; 86901; 87070; 87077; 87186; 87205; 88305-TC; 88311-TC; 93005; 93010; 93306-TC; 94010; 97116-GP; 97162-GP; 99285-25; C9803; G0277; J1644; U0003; U0005

== ENCOUNTER 2021-06-03 12:30 | Inpatient (IN) | payer MEDICARE, OTHER ==
[2021-06-03 16:43] LABS: BASO % 0.6 % (0-2.0); EOS % 0.1 % (0-4.5); HEMATOCRIT 30.7 % (35.4-49); HEMOGLOBIN 10.3 GM/dL (11.7-16.9); MCH 26.7 pg (25.7-33.7); MCHC 33.4 g/dl (32.0-35.9); MEAN PLT VOLUME 8.3 fl (7.5-11.1); MONO % 4.6 % (3.8-10.2); NEUT % 88.7 % (42.8-82.8); PLATELET COUNT 176 10^3/uL (134-434); RBC 3.85 M/mm3 (4.00-5.60); RDW 14.8 % (11.9-15.9); WHITE BLOOD COUNT 10.8 K/mm3 (4.0-10.0)
[2021-06-03] MEDS ORDERED: ACETAMINOPHEN 1000 MG/100 ML VIAL (NON FORMULARY) IVPB ONE (16:52)
[2021-06-03] MEDS ORDERED: ACETAMINOPHEN INJECTION 100 ML IVPB ONE ×2 (16:55→18:31)
[2021-06-03 17:02] LABS: CHLORIDE 104 mmol/L (98-107); SODIUM 136 mmol/L (136-145)
[2021-06-03 17:05] LABS: ANION GAP 8 MMOL/L (8-16); BLOOD UREA NITROGEN 34.8 mg/dL (7-18); CO2 25 mmol/L (21-32); GLUCOSE,RANDOM 90 mg/dL (74-106)
[2021-06-03 17:08] LABS: SGOT/AST 23 U/L (15-37); SGPT/ALT 36 U/L (13-61)
[2021-06-03 17:10] LABS: BILIRUBIN,TOTAL 0.9 mg/dL (0.2-1); TOT PROT 6.9 g/dl (6.4-8.2)
[2021-06-03 17:11] LABS: ALK PHOS 83 U/L (45-117)
[2021-06-03] MEDS ORDERED: SODIUM CHLORIDE 0.9% 500 ML INFUS.BAG IV ONE (17:36)
[2021-06-03] MEDS ORDERED: oxyCODONE HCL 5 MG TABLET PO PRN (17:53)
[2021-06-03 18:00] LABS: ERYTHROCYTE SEDIMENTATION RATE 66 mm/hr (0-20)
[2021-06-03] MEDS ORDERED: ALBUTEROL SO4 HFA INHALER IH PRN (20:29)
[2021-06-04] MEDS ORDERED: SODIUM CHLORIDE 500 ML IV STA (01:10)
[2021-06-04 04:26] VITALS: BMI 26.0
[2021-06-04] MEDS: INSULIN SLIDING SCALE (NOVOLOG) 1 VIAL SQ SCH ×5 (06:10→22:36)
[2021-06-04] MEDS: HEPARIN NA (PORCINE) 5,000 UNITS/ML 1ML VIAL SQ SCH ×4 (06:10→21:02)
[2021-06-04] MEDS: ATORVASTATIN CA 40 MG TABLET (FP) PO SCH ×2 (08:04→21:02)
[2021-06-04 09:26] LABS: INR 1.43 (0.83-1.09); PROTHROMBIN TIME (PATIENT) 17.4 SEC (9.7-13.0)
[2021-06-04 09:32] LABS: BASO % 0.4 % (0-2.0); EOS % 0.4 % (0-4.5); HEMATOCRIT 27.3 % (35.4-49); HEMOGLOBIN 9.3 GM/dL (11.7-16.9); LYMPH % 7.4 % (8-40); MCH 27.2 pg (25.7-33.7); MEAN CELL VOLUME 79.9 fl (80-96); MEAN PLT VOLUME 8.8 fl (7.5-11.1); MONO % 3.8 % (3.8-10.2); PLATELET COUNT 134 10^3/uL (134-434); RBC 3.42 M/mm3 (4.00-5.60); RDW 14.4 % (11.9-15.9); WHITE BLOOD COUNT 7.9 K/mm3 (4.0-10.0)
[2021-06-04 10:05] LABS: CALCIUM 8.4 mg/dL (8.5-10.1)
[2021-06-04 10:06] LABS: BLOOD UREA NITROGEN 44.8 mg/dL (7-18)
[2021-06-04] MEDS: amLODIPine BESYLATE 5 MG TABLET (FP) PO SCH (11:29)
[2021-06-04] MEDS: EZETIMIBE 10 MG TABLET (FP) PO SCH (11:29)
[2021-06-04] MEDS ORDERED: PIPERACILLIN/TAZOBACTAM 2.25 GM VIAL IVPB ONE (13:53)
[2021-06-04] MEDS ORDERED: DEXTROSE 5%-WATER - 50 ML IVPB ONE (13:53)
[2021-06-04] MEDS: PIPERACILLIN/TAZOB 2.25 GM 2.25 GM in DEXTROSE 5%-WATER - 50 ML IVPB SCH ×2 (14:38→17:02)
[2021-06-04] MEDS ORDERED: SODIUM CHLORIDE 0.45% 1,000 ML IV SCH (20:15)
[2021-06-04] MEDS ORDERED: ACETAMINOPHEN 325 MG TABLET (FP) PO PRN (20:33)
[2021-06-04] MEDS: SODIUM CHLORIDE 0.45% 1,000 ML IV SCH (20:35)
[2021-06-04 23:08] LABS: EPI CELLS 2 /uL (0-25.1); HYALINE CASTS 0 /uL (0-3.1); URINE APPEARANCE CLEAR; URINE BACTERIA 246 /uL (0-1359); URINE BILIRUBIN NEGATIVE (NEGATIVE); URINE COLOR YELLOW; URINE GLUCOSE (UA) NEGATIVE (NEGATIVE); URINE KETONE NEGATIVE (NEGATIVE); URINE LEUK ESTERASE NEGATIVE (NEGATIVE); URINE NITRITE NEGATIVE (NEGATIVE); URINE PROTEIN 1+ (NEGATIVE); URINE UROBILINOGEN 0.2 mg/dL (0.2-1.0); URINE WBC 11 /uL (0-25.8)
[2021-06-04 23:34] LABS: URINE RBC 47.2 /uL (0-23.9)
[2021-06-04 23:35] LABS: YEAST NONE SEEN (NEGATIVE)
[2021-06-05] MEDS ORDERED: IBUPROFEN 200 MG TABLET PO ONE (00:32)
[2021-06-05] MEDS ORDERED: DEXTROSE 5%-WATER - 50 ML IVPB ONE ×3 (01:04→16:42)
[2021-06-05] MEDS ORDERED: PIPERACILLIN/TAZOBACTAM 2.25 GM VIAL IVPB ONE ×3 (01:04→16:42)
[2021-06-05] MEDS: PIPERACILLIN/TAZOB 2.25 GM 2.25 GM in DEXTROSE 5%-WATER - 50 ML IVPB SCH ×3 (01:38→17:19)
[2021-06-05] MEDS: HEPARIN NA (PORCINE) 5,000 UNITS/ML 1ML VIAL SQ SCH ×3 (06:32→22:18)
[2021-06-05] MEDS: INSULIN SLIDING SCALE (NOVOLOG) 1 VIAL SQ SCH ×4 (06:33→22:18)
[2021-06-05] MEDS: SODIUM CHLORIDE 0.45% 1,000 ML IV SCH ×3 (06:40→21:13)
[2021-06-05] MEDS: amLODIPine BESYLATE 5 MG TABLET (FP) PO SCH (10:56)
[2021-06-05] MEDS: EZETIMIBE 10 MG TABLET (FP) PO SCH (10:56)
[2021-06-05 11:22] LABS: CALCIUM 8.1 mg/dL (8.5-10.1)
[2021-06-05 11:23] LABS: BLOOD UREA NITROGEN 35.8 mg/dL (7-18)
[2021-06-05 11:26] LABS: CREATININE 1.6 mg/dL (0.55-1.3)
[2021-06-05 11:28] LABS: BILIRUBIN,TOTAL 1.1 mg/dL (0.2-1); TOT PROT 5.8 g/dl (6.4-8.2)
[2021-06-05 11:30] LABS: ALBUMIN 2.3 g/dl (3.4-5.0)
[2021-06-05] MEDS: ATORVASTATIN CA 40 MG TABLET (FP) PO SCH (22:18)
[2021-06-06] MEDS ORDERED: DEXTROSE 5%-WATER - 50 ML IVPB ONE ×3 (01:36→17:19)
[2021-06-06] MEDS ORDERED: PIPERACILLIN/TAZOBACTAM 2.25 GM VIAL IVPB ONE ×3 (01:36→17:18)
[2021-06-06] MEDS: PIPERACILLIN/TAZOB 2.25 GM 2.25 GM in DEXTROSE 5%-WATER - 50 ML IVPB SCH ×3 (01:46→17:44)
[2021-06-06] MEDS: INSULIN SLIDING SCALE (NOVOLOG) 1 VIAL SQ SCH ×4 (06:04→22:30)
[2021-06-06] MEDS: HEPARIN NA (PORCINE) 5,000 UNITS/ML 1ML VIAL SQ SCH ×3 (06:11→22:30)
[2021-06-06] MEDS: amLODIPine BESYLATE 5 MG TABLET (FP) PO SCH (09:35)
[2021-06-06] MEDS: EZETIMIBE 10 MG TABLET (FP) PO SCH (09:35)
[2021-06-06 10:38] LABS: CALCIUM 8.7 mg/dL (8.5-10.1)
[2021-06-06 10:39] LABS: ALBUMIN 2.3 g/dl (3.4-5.0); BLOOD UREA NITROGEN 28.1 mg/dL (7-18)
[2021-06-06 10:42] LABS: CREATININE 1.3 mg/dL (0.55-1.3)
[2021-06-06 10:44] LABS: BILIRUBIN,TOTAL 0.8 mg/dL (0.2-1); TOT PROT 5.7 g/dl (6.4-8.2)
[2021-06-06] MEDS: SODIUM CHLORIDE 0.45% 1,000 ML IV SCH (14:48)
[2021-06-06] MEDS: ATORVASTATIN CA 40 MG TABLET (FP) PO SCH (22:27)
[2021-06-07] MEDS ORDERED: PIPERACILLIN/TAZOBACTAM 2.25 GM VIAL IVPB ONE ×2 (01:28→10:46)
[2021-06-07] MEDS ORDERED: DEXTROSE 5%-WATER - 50 ML IVPB ONE ×3 (01:28→17:34)
[2021-06-07] MEDS: PIPERACILLIN/TAZOB 2.25 GM 2.25 GM in DEXTROSE 5%-WATER - 50 ML IVPB SCH ×2 (01:37→11:14)
[2021-06-07] MEDS: INSULIN SLIDING SCALE (NOVOLOG) 1 VIAL SQ SCH ×4 (06:54→21:18)
[2021-06-07] MEDS: HEPARIN NA (PORCINE) 5,000 UNITS/ML 1ML VIAL SQ SCH ×3 (06:55→21:22)
[2021-06-07] MEDS: EZETIMIBE 10 MG TABLET (FP) PO SCH (11:14)
[2021-06-07] MEDS: amLODIPine BESYLATE 5 MG TABLET (FP) PO SCH (11:14)
[2021-06-07] MEDS ORDERED: PIPERACILLIN/TAZOBACTAM 3.375 GM VIAL IVPB ONE (17:34)
[2021-06-07] MEDS: PIPERACILLIN/TAZOB 3.375 GM 3.375 GM in DEXTROSE 5%-WATER - 50 ML IVPB SCH (17:57)
[2021-06-07] MEDS: ATORVASTATIN CA 40 MG TABLET (FP) PO SCH (21:22)
[2021-06-08] MEDS ORDERED: PIPERACILLIN/TAZOBACTAM 3.375 GM VIAL IVPB ONE ×3 (01:05→18:15)
[2021-06-08] MEDS ORDERED: DEXTROSE 5%-WATER - 50 ML IVPB ONE ×3 (01:05→18:15)
[2021-06-08] MEDS: PIPERACILLIN/TAZOB 3.375 GM 3.375 GM in DEXTROSE 5%-WATER - 50 ML IVPB SCH ×3 (01:30→18:29)
[2021-06-08] MEDS: INSULIN SLIDING SCALE (NOVOLOG) 1 VIAL SQ SCH ×4 (06:09→21:38)
[2021-06-08] MEDS: HEPARIN NA (PORCINE) 5,000 UNITS/ML 1ML VIAL SQ SCH ×3 (06:10→21:35)
[2021-06-08] MEDS: amLODIPine BESYLATE 5 MG TABLET (FP) PO SCH (09:47)
[2021-06-08] MEDS: EZETIMIBE 10 MG TABLET (FP) PO SCH (09:47)
[2021-06-08 11:26] LABS: BASO % 0.9 % (0-2.0); EOS % 1.9 % (0-4.5); HEMATOCRIT 31.1 % (35.4-49); HEMOGLOBIN 10.8 GM/dL (11.7-16.9); LYMPH % 32.5 % (8-40); MCHC 34.7 g/dl (32.0-35.9); MEAN CELL VOLUME 77.6 fl (80-96); MEAN PLT VOLUME 9.4 fl (7.5-11.1); MONO % 18.4 % (3.8-10.2); NEUT % 46.3 % (42.8-82.8); PLATELET COUNT 146 10^3/uL (134-434); WHITE BLOOD COUNT 4.3 K/mm3 (4.0-10.0)
[2021-06-08 11:53] LABS: ALBUMIN 2.7 g/dl (3.4-5.0); BLOOD UREA NITROGEN 16.9 mg/dL (7-18); CALCIUM 8.9 mg/dL (8.5-10.1)
[2021-06-08 11:56] LABS: CREATININE 1.1 mg/dL (0.55-1.3)
[2021-06-08 11:57] LABS: BILIRUBIN,TOTAL 0.8 mg/dL (0.2-1); TOT PROT 6.7 g/dl (6.4-8.2)
[2021-06-08] MEDS ORDERED: POTASSIUM CHLORIDE ORAL LIQUID 20 MEQ/15 ML PO ONE (12:42)
[2021-06-08] MEDS: ATORVASTATIN CA 40 MG TABLET (FP) PO SCH (21:35)
[2021-06-09] MEDS ORDERED: DEXTROSE 5%-WATER - 50 ML IVPB ONE ×3 (01:14→18:01)
[2021-06-09] MEDS ORDERED: PIPERACILLIN/TAZOBACTAM 3.375 GM VIAL IVPB ONE ×3 (01:14→18:01)
[2021-06-09] MEDS: PIPERACILLIN/TAZOB 3.375 GM 3.375 GM in DEXTROSE 5%-WATER - 50 ML IVPB SCH ×3 (01:43→18:24)
[2021-06-09] MEDS: INSULIN SLIDING SCALE (NOVOLOG) 1 VIAL SQ SCH ×5 (06:06→22:12)
[2021-06-09] MEDS: HEPARIN NA (PORCINE) 5,000 UNITS/ML 1ML VIAL SQ SCH ×3 (06:08→22:11)
[2021-06-09 09:33] LABS: BASO % 1.1 % (0-2.0); HEMATOCRIT 32.2 % (35.4-49); HEMOGLOBIN 11.2 GM/dL (11.7-16.9); LYMPH % 37.1 % (8-40); MCHC 34.7 g/dl (32.0-35.9); MEAN CELL VOLUME 77.8 fl (80-96); MEAN PLT VOLUME 8.7 fl (7.5-11.1); MONO % 10.6 % (3.8-10.2); NEUT % 48.2 % (42.8-82.8); PLATELET COUNT 183 10^3/uL (134-434); RBC 4.14 M/mm3 (4.00-5.60); WHITE BLOOD COUNT 4.3 K/mm3 (4.0-10.0)
[2021-06-09] MEDS: EZETIMIBE 10 MG TABLET (FP) PO SCH (10:43)
[2021-06-09] MEDS: amLODIPine BESYLATE 5 MG TABLET (FP) PO SCH (10:43)
[2021-06-09 10:57] LABS: CALCIUM 9.1 mg/dL (8.5-10.1)
[2021-06-09 10:58] LABS: ALBUMIN 2.8 g/dl (3.4-5.0); BLOOD UREA NITROGEN 20.4 mg/dL (7-18)
[2021-06-09 11:01] LABS: CREATININE 1.2 mg/dL (0.55-1.3)
[2021-06-09 11:02] LABS: BILIRUBIN,TOTAL 0.7 mg/dL (0.2-1)
[2021-06-09] MEDS: COLLAGENASE CLOSTRIDIUM HIST. 30 GRAMS TUBE TP SCH (12:34)
[2021-06-09] MEDS: ATORVASTATIN CA 40 MG TABLET (FP) PO SCH (22:11)
[2021-06-10] MEDS ORDERED: PIPERACILLIN/TAZOBACTAM 3.375 GM VIAL IVPB ONE ×3 (01:34→17:03)
[2021-06-10] MEDS ORDERED: DEXTROSE 5%-WATER - 50 ML IVPB ONE ×3 (01:35→17:03)
[2021-06-10] MEDS: PIPERACILLIN/TAZOB 3.375 GM 3.375 GM in DEXTROSE 5%-WATER - 50 ML IVPB SCH ×3 (01:52→17:52)
[2021-06-10] MEDS: INSULIN SLIDING SCALE (NOVOLOG) 1 VIAL SQ SCH ×4 (06:02→21:53)
[2021-06-10] MEDS: HEPARIN NA (PORCINE) 5,000 UNITS/ML 1ML VIAL SQ SCH ×2 (06:02→14:13)
[2021-06-10] MEDS: COLLAGENASE CLOSTRIDIUM HIST. 30 GRAMS TUBE TP SCH (09:52)
[2021-06-10] MEDS: EZETIMIBE 10 MG TABLET (FP) PO SCH (12:25)
[2021-06-10] MEDS: amLODIPine BESYLATE 5 MG TABLET (FP) PO SCH (12:26)
[2021-06-10] MEDS: ATORVASTATIN CA 40 MG TABLET (FP) PO SCH (21:53)
[2021-06-11] MEDS ORDERED: DEXTROSE 5%-WATER - 50 ML IVPB ONE ×3 (01:55→17:33)
[2021-06-11] MEDS ORDERED: PIPERACILLIN/TAZOBACTAM 3.375 GM VIAL IVPB ONE ×3 (01:55→17:33)
[2021-06-11] MEDS: PIPERACILLIN/TAZOB 3.375 GM 3.375 GM in DEXTROSE 5%-WATER - 50 ML IVPB SCH ×3 (02:22→18:41)
[2021-06-11] MEDS: INSULIN SLIDING SCALE (NOVOLOG) 1 VIAL SQ SCH ×4 (06:06→21:25)
[2021-06-11] MEDS: amLODIPine BESYLATE 5 MG TABLET (FP) PO SCH (10:01)
[2021-06-11] MEDS: EZETIMIBE 10 MG TABLET (FP) PO SCH (10:01)
[2021-06-11] MEDS: COLLAGENASE CLOSTRIDIUM HIST. 30 GRAMS TUBE TP SCH (10:01)
[2021-06-11 10:11] LABS: TOT PROT 7.3 g/dl (6.4-8.2)
[2021-06-11 10:12] LABS: ALBUMIN 3.1 g/dl (3.4-5.0); BLOOD UREA NITROGEN 18.5 mg/dL (7-18)
[2021-06-11 10:16] LABS: CALCIUM 9.3 mg/dL (8.5-10.1); CREATININE 1.2 mg/dL (0.55-1.3)
[2021-06-11] MEDS: ATORVASTATIN CA 40 MG TABLET (FP) PO SCH (21:25)
[2021-06-12] MEDS ORDERED: DEXTROSE 5%-WATER - 50 ML IVPB ONE ×2 (01:10→09:25)
[2021-06-12] MEDS ORDERED: PIPERACILLIN/TAZOBACTAM 3.375 GM VIAL IVPB ONE ×2 (01:10→09:25)
[2021-06-12] MEDS: PIPERACILLIN/TAZOB 3.375 GM 3.375 GM in DEXTROSE 5%-WATER - 50 ML IVPB SCH ×2 (01:16→10:07)
[2021-06-12] MEDS: INSULIN SLIDING SCALE (NOVOLOG) 1 VIAL SQ SCH ×2 (06:09→12:26)
[2021-06-12] MEDS ORDERED: PT OWN MED DRAWER 7, Y5N ONE (09:24)
[2021-06-12] MEDS: amLODIPine BESYLATE 5 MG TABLET (FP) PO SCH (10:06)
[2021-06-12] MEDS: EZETIMIBE 10 MG TABLET (FP) PO SCH (10:06)
[2021-06-12] MEDS: COLLAGENASE CLOSTRIDIUM HIST. 30 GRAMS TUBE TP SCH (10:07)
[2021-06-12 15:54] VITALS: BP 136/61; PULSE 56; TEMP 98.6
== END 2021-06-12 16:44 | disposition home or self-care (01) | DRG 315 ==
LOC: JER 12:30 → JERBED 17:51 → J5S 06-04 00:35
PROVIDERS: ADMIT Internal Medicine; ATTEND Family Medicine
PROC: 05PYX3Z Removal of Infusion Device from Upper Vein, External Approach (ICD-10-PCS; principal; 2021-06-04)
DX: T80.211A Bloodstream infection due to central venous catheter, initial encounter (principal); N17.9 Acute kidney failure, unspecified; L97.518 Non-pressure chronic ulcer of other part of right foot with other specified severity; L03.115 Cellulitis of right lower limb; I10 Essential (primary) hypertension; I25.10 Atherosclerotic heart disease of native coronary artery without angina pectoris; E78.5 Hyperlipidemia, unspecified; E11.9 Type 2 diabetes mellitus without complications; I25.2 Old myocardial infarction; R53.1 Weakness; E11.621 Type 2 diabetes mellitus with foot ulcer; E11.51 Type 2 diabetes mellitus with diabetic peripheral angiopathy without gangrene; I12.9 Hypertensive chronic kidney disease with stage 1 through stage 4 chronic kidney disease, or unspecified chronic kidney disease; E11.22 Type 2 diabetes mellitus with diabetic chronic kidney disease; N18.30 Chronic kidney disease, stage 3 unspecified; D64.9 Anemia, unspecified; E87.6 Hypokalemia; B96.89 Other specified bacterial agents as the cause of diseases classified elsewhere
CPT/HCPCS: 36415; 71046-TC-FY; 76775-TC; 76856-TC; 80048; 80053; 81003; 82436; 82550; 82570; 82962; 84133; 84300; 84484; 85025; 85610; 85651; 85730; 86140; 87040; 87086; 87186; 93005; 93010; 97116-GP; 97162-GP; 99285-25; C9803; G0277; G0463-25; J0131; J1644; U0003; U0005

== ENCOUNTER 2021-06-13 09:57 | Day surgery (SDC) | payer MEDICARE, OTHER ==
[2021-06-13] MEDS ORDERED: DALBAVANCIN HCL 1,500 MG in DEXTROSE 5%-WATER - 500 ML IVPB ONE (11:30)
[2021-06-13 11:56] VITALS: TEMP 98.7
[2021-06-13 12:24] VITALS: BP 185/76; PULSE 56
== END 2021-06-13 12:40 | disposition home or self-care (01) ==
LOC: JINFUSION 09:57 → J7W 10:32 → JINFUSION 12:40
PROVIDERS: ATTEND Internal Medicine Infectious Disease
PROC: 3E033GC Introduction of Other Therapeutic Substance into Peripheral Vein, Percutaneous Approach (ICD-10-PCS; principal; 2021-06-13)
DX: E11.621 Type 2 diabetes mellitus with foot ulcer (principal); L97.509 Non-pressure chronic ulcer of other part of unspecified foot with unspecified severity; L03.115 Cellulitis of right lower limb
CPT/HCPCS: 96365; J0875

== ENCOUNTER 2021-06-22 09:32 | Day surgery (SDC) | payer MEDICARE, OTHER ==
[2021-06-22] MEDS ORDERED: DALBAVANCIN HCL 1,500 MG in DEXTROSE 5%-WATER - 500 ML IVPB ONE (11:00)
[2021-06-22 15:26] VITALS: BP 185/86; PULSE 63; TEMP 98
== END 2021-06-22 13:00 | disposition home or self-care (01) ==
LOC: JINFUSION 09:32 → J7W 09:33 → JINFUSION 13:00
PROVIDERS: ATTEND Internal Medicine Infectious Disease
DX: E11.621 Type 2 diabetes mellitus with foot ulcer (principal); L97.509 Non-pressure chronic ulcer of other part of unspecified foot with unspecified severity
CPT/HCPCS: 96365; J0875

== ENCOUNTER 2021-09-25 10:42 | Inpatient (IN) | payer MEDICARE, OTHER ==
[2021-09-25] MEDS ORDERED: PIPERACILLIN/TAZOB 3.375 GM 3.375 GM in DEXTROSE 5%-WATER - 50 ML IVPB ONE (12:54)
[2021-09-25] MEDS ORDERED: PIPERACILLIN/TAZOB 3.375 GM 3.375 GM/50 ML BAG IVPB ONE (13:28)
[2021-09-25 14:12] LABS: BASO % 0.9 % (0-2.0); EOS % 5.1 % (0-4.5); HEMOGLOBIN 12.2 GM/dL (11.7-16.9); LYMPH % 35.4 % (8-40); MCH 27.5 pg (25.7-33.7); MEAN CELL VOLUME 83.6 fl (80-96); MEAN PLT VOLUME 8.3 fl (7.5-11.1); MONO % 9.8 % (3.8-10.2); NEUT % 48.8 % (42.8-82.8); PLATELET COUNT 210 10^3/uL (134-434); RBC 4.43 M/mm3 (4.00-5.60); RDW 14.4 % (11.9-15.9); WHITE BLOOD COUNT 4.1 K/mm3 (4.0-10.0)
[2021-09-25 14:17] LABS: INR 0.98 (0.83-1.09); PROTHROMBIN TIME (PATIENT) 11.5 SEC (9.7-13.0)
[2021-09-25 14:51] LABS: CALCIUM 9.5 mg/dL (8.5-10.1)
[2021-09-25 14:52] LABS: ALBUMIN 3.6 g/dl (3.4-5.0); BLOOD UREA NITROGEN 22.9 mg/dL (7-18)
[2021-09-25 14:55] LABS: CREATININE 1.2 mg/dL (0.55-1.3)
[2021-09-25 14:56] LABS: BILIRUBIN,TOTAL 0.4 mg/dL (0.2-1); TOT PROT 7.6 g/dl (6.4-8.2)
[2021-09-25] MEDS ORDERED: ALBUTEROL SO4 HFA INHALER IH PRN (21:54)
[2021-09-25] MEDS ORDERED: ATORVASTATIN CA 40 MG TABLET (FP) ONE (23:13)
[2021-09-25] MEDS ORDERED: PIPERACILLIN/TAZOB 2.25 GM 2.25 GM/50 ML BAG IVPB ONE (23:14)
[2021-09-25] MEDS ORDERED: GABAPENTIN 100 MG CAPSULE ONE (23:14)
[2021-09-25] MEDS: ATORVASTATIN CA 40 MG TABLET (FP) PO SCH (23:17)
[2021-09-25] MEDS: GABAPENTIN 300 MG CAPSULE PO SCH (23:17)
[2021-09-25] MEDS: PIPERACILLIN/TAZOB 2.25 GM 2.25 GM in DEXTROSE 5%-WATER - 50 ML IVPB SCH (23:17)
[2021-09-25] MEDS: INSULIN SLIDING SCALE (NOVOLOG) 1 VIAL SQ SCH (23:18)
[2021-09-26] MEDS ORDERED: PIPERACILLIN/TAZOBACTAM 2.25 GM VIAL IVPB ONE ×2 (00:59→10:39)
[2021-09-26] MEDS ORDERED: DEXTROSE 5%-WATER - 50 ML IVPB ONE ×3 (01:00→17:35)
[2021-09-26] MEDS: PIPERACILLIN/TAZOB 2.25 GM 2.25 GM in DEXTROSE 5%-WATER - 50 ML IVPB SCH ×2 (01:20→10:47)
[2021-09-26 02:44] VITALS: BMI 26.7
[2021-09-26] MEDS: INSULIN SLIDING SCALE (NOVOLOG) 1 VIAL SQ SCH ×4 (06:24→22:52)
[2021-09-26] MEDS: GABAPENTIN 300 MG CAPSULE PO SCH ×3 (06:24→22:47)
[2021-09-26 09:58] LABS: BASO % 0.9 % (0-2.0); EOS % 4.6 % (0-4.5); HEMATOCRIT 34.6 % (35.4-49); HEMOGLOBIN 11.6 GM/dL (11.7-16.9); LYMPH % 30.4 % (8-40); MCH 27.7 pg (25.7-33.7); MCHC 33.6 g/dl (32.0-35.9); MEAN CELL VOLUME 82.4 fl (80-96); MEAN PLT VOLUME 7.9 fl (7.5-11.1); MONO % 7.5 % (3.8-10.2); NEUT % 56.6 % (42.8-82.8); PLATELET COUNT 194 10^3/uL (134-434); RDW 14.1 % (11.9-15.9); WHITE BLOOD COUNT 4.2 K/mm3 (4.0-10.0)
[2021-09-26] MEDS: ASPIRIN COATED 81 MG TABLET.EC PO SCH (10:46)
[2021-09-26] MEDS: amLODIPine BESYLATE 10 MG TABLET (FP) PO SCH (10:46)
[2021-09-26] MEDS: ENOXAPARIN NA (PORCINE) 40 MG/0.4 ML DISP.SYRIN SQ SCH (10:46)
[2021-09-26] MEDS: FERROUS GLUCONATE 324 MG TAB (FP) PO SCH (10:47)
[2021-09-26 10:50] LABS: BLOOD UREA NITROGEN 23.3 mg/dL (7-18); CALCIUM 9.1 mg/dL (8.5-10.1)
[2021-09-26 10:54] LABS: CREATININE 1.1 mg/dL (0.55-1.3)
[2021-09-26 10:55] LABS: BILIRUBIN,TOTAL 0.7 mg/dL (0.2-1); TOT PROT 6.7 g/dl (6.4-8.2)
[2021-09-26] MEDS: COLLAGENASE CLOSTRIDIUM HIST. 30 GRAMS TUBE TP SCH (15:23)
[2021-09-26] MEDS ORDERED: PIPERACILLIN/TAZOBACTAM 3.375 GM VIAL IVPB ONE (17:35)
[2021-09-26] MEDS: PIPERACILLIN/TAZOB 3.375 GM 3.375 GM in DEXTROSE 5%-WATER - 50 ML IVPB SCH (18:22)
[2021-09-26] MEDS: ATORVASTATIN CA 40 MG TABLET (FP) PO SCH (22:47)
[2021-09-27] MEDS ORDERED: DEXTROSE 5%-WATER - 50 ML IVPB ONE ×3 (02:08→16:45)
[2021-09-27] MEDS ORDERED: PIPERACILLIN/TAZOBACTAM 3.375 GM VIAL IVPB ONE ×3 (02:08→16:45)
[2021-09-27] MEDS: PIPERACILLIN/TAZOB 3.375 GM 3.375 GM in DEXTROSE 5%-WATER - 50 ML IVPB SCH ×3 (02:09→17:03)
[2021-09-27] MEDS: GABAPENTIN 300 MG CAPSULE PO SCH ×3 (06:16→22:11)
[2021-09-27] MEDS: INSULIN SLIDING SCALE (NOVOLOG) 1 VIAL SQ SCH ×4 (06:17→22:12)
[2021-09-27 11:13] LABS: BASO % 0.8 % (0-2.0); EOS % 2.7 % (0-4.5); HEMATOCRIT 36.8 % (35.4-49); HEMOGLOBIN 12.4 GM/dL (11.7-16.9); LYMPH % 32.2 % (8-40); MCH 27.6 pg (25.7-33.7); MCHC 33.6 g/dl (32.0-35.9); MEAN PLT VOLUME 7.9 fl (7.5-11.1); MONO % 6.9 % (3.8-10.2); NEUT % 57.4 % (42.8-82.8); PLATELET COUNT 211 10^3/uL (134-434); RBC 4.49 M/mm3 (4.00-5.60); WHITE BLOOD COUNT 4.3 K/mm3 (4.0-10.0)
[2021-09-27] MEDS: FERROUS GLUCONATE 324 MG TAB (FP) PO SCH (11:15)
[2021-09-27] MEDS: ASPIRIN COATED 81 MG TABLET.EC PO SCH (11:15)
[2021-09-27] MEDS: amLODIPine BESYLATE 10 MG TABLET (FP) PO SCH (11:15)
[2021-09-27] MEDS: ENOXAPARIN NA (PORCINE) 40 MG/0.4 ML DISP.SYRIN SQ SCH (11:15)
[2021-09-27 11:33] LABS: CALCIUM 9.2 mg/dL (8.5-10.1)
[2021-09-27 11:37] LABS: CREATININE 1.2 mg/dL (0.55-1.3)
[2021-09-27 11:38] LABS: TOT PROT 6.8 g/dl (6.4-8.2)
[2021-09-27 11:39] LABS: BILIRUBIN,TOTAL 0.7 mg/dL (0.2-1)
[2021-09-27] MEDS: COLLAGENASE CLOSTRIDIUM HIST. 30 GRAMS TUBE TP SCH (12:35)
[2021-09-27] MEDS: ATORVASTATIN CA 40 MG TABLET (FP) PO SCH (22:11)
[2021-09-28] MEDS ORDERED: DEXTROSE 5%-WATER - 50 ML IVPB ONE ×3 (02:10→16:48)
[2021-09-28] MEDS ORDERED: PIPERACILLIN/TAZOBACTAM 3.375 GM VIAL IVPB ONE ×3 (02:10→16:48)
[2021-09-28] MEDS: PIPERACILLIN/TAZOB 3.375 GM 3.375 GM in DEXTROSE 5%-WATER - 50 ML IVPB SCH ×3 (02:25→17:56)
[2021-09-28] MEDS: GABAPENTIN 300 MG CAPSULE PO SCH ×3 (06:13→21:51)
[2021-09-28] MEDS: INSULIN SLIDING SCALE (NOVOLOG) 1 VIAL SQ SCH ×4 (06:17→21:54)
[2021-09-28] MEDS: amLODIPine BESYLATE 10 MG TABLET (FP) PO SCH (10:30)
[2021-09-28] MEDS: FERROUS GLUCONATE 324 MG TAB (FP) PO SCH (10:31)
[2021-09-28] MEDS: ASPIRIN COATED 81 MG TABLET.EC PO SCH (10:39)
[2021-09-28] MEDS: ENOXAPARIN NA (PORCINE) 40 MG/0.4 ML DISP.SYRIN SQ SCH (10:40)
[2021-09-28] MEDS: COLLAGENASE CLOSTRIDIUM HIST. 30 GRAMS TUBE TP SCH (15:48)
[2021-09-28] MEDS: ATORVASTATIN CA 40 MG TABLET (FP) PO SCH (21:51)
[2021-09-29] MEDS: PIPERACILLIN/TAZOB 3.375 GM 3.375 GM in DEXTROSE 5%-WATER - 50 ML IVPB SCH ×3 (01:59→18:55)
[2021-09-29] MEDS ORDERED: DEXTROSE 5%-WATER - 50 ML IVPB ONE ×3 (01:59→17:07)
[2021-09-29] MEDS ORDERED: PIPERACILLIN/TAZOBACTAM 3.375 GM VIAL IVPB ONE ×3 (01:59→17:07)
[2021-09-29] MEDS: GABAPENTIN 300 MG CAPSULE PO SCH ×3 (05:29→22:30)
[2021-09-29] MEDS: INSULIN SLIDING SCALE (NOVOLOG) 1 VIAL SQ SCH ×4 (06:42→22:31)
[2021-09-29] MEDS: COLLAGENASE CLOSTRIDIUM HIST. 30 GRAMS TUBE TP SCH (10:50)
[2021-09-29] MEDS: amLODIPine BESYLATE 10 MG TABLET (FP) PO SCH (10:52)
[2021-09-29] MEDS: FERROUS GLUCONATE 324 MG TAB (FP) PO SCH (10:52)
[2021-09-29] MEDS: ENOXAPARIN NA (PORCINE) 40 MG/0.4 ML DISP.SYRIN SQ SCH (11:19)
[2021-09-29 13:16] LABS: BASO % 0.7 % (0-2.0); EOS % 3.3 % (0-4.5); HEMATOCRIT 37.2 % (35.4-49); HEMOGLOBIN 12.5 GM/dL (11.7-16.9); LYMPH % 36.1 % (8-40); MCH 27.4 pg (25.7-33.7); MCHC 33.7 g/dl (32.0-35.9); MEAN CELL VOLUME 81.5 fl (80-96); MEAN PLT VOLUME 7.8 fl (7.5-11.1); MONO % 7.4 % (3.8-10.2); NEUT % 52.5 % (42.8-82.8); PLATELET COUNT 213 10^3/uL (134-434); RBC 4.57 M/mm3 (4.00-5.60); RDW 14.1 % (11.9-15.9); WHITE BLOOD COUNT 4.3 K/mm3 (4.0-10.0)
[2021-09-29 13:25] LABS: ALBUMIN 3.4 g/dl (3.4-5.0); CALCIUM 9.7 mg/dL (8.5-10.1)
[2021-09-29 13:26] LABS: BLOOD UREA NITROGEN 21.3 mg/dL (7-18)
[2021-09-29 13:28] LABS: CREATININE 1.2 mg/dL (0.55-1.3)
[2021-09-29 13:30] LABS: BILIRUBIN,TOTAL 0.9 mg/dL (0.2-1); TOT PROT 7.3 g/dl (6.4-8.2)
[2021-09-29] MEDS ORDERED: LIDOCAINE HCL 1%, 10 MG/ML (20ML VIAL) ONE (15:43)
[2021-09-29] MEDS ORDERED: HEPARIN NA (PORCINE) 5,000 UNITS/ML 1ML VIAL ONE (15:43)
[2021-09-29] MEDS ORDERED: ONDANSETRON 4 MG/2 ML VIAL IVPUSH PRN ×2 (15:55→17:58)
[2021-09-29] MEDS ORDERED: PROPOFOL 20 ML ONE (16:05)
[2021-09-29] MEDS ORDERED: MIDAZOLAM HCL 2 MG/2 ML SINGLE DOSE VIAL ONE ×2 (16:05)
[2021-09-29] MEDS ORDERED: LIDOCAINE HCL 1%, 10 MG/ML (20ML VIAL) NR ONE (17:25)
[2021-09-29] MEDS ORDERED: ALBUTEROL SO4 HFA INHALER IH PRN (17:58)
[2021-09-29] MEDS ORDERED: ATORVASTATIN CA 40 MG TABLET (FP) PO SCH (22:00)
[2021-09-30] MEDS ORDERED: DEXTROSE 5%-WATER - 50 ML IVPB ONE ×3 (01:11→16:01)
[2021-09-30] MEDS ORDERED: PIPERACILLIN/TAZOBACTAM 3.375 GM VIAL IVPB ONE ×3 (01:11→16:01)
[2021-09-30] MEDS: PIPERACILLIN/TAZOB 3.375 GM 3.375 GM in DEXTROSE 5%-WATER - 50 ML IVPB SCH ×3 (01:33→17:53)
[2021-09-30] MEDS: GABAPENTIN 300 MG CAPSULE PO SCH ×3 (06:45→23:22)
[2021-09-30] MEDS: INSULIN SLIDING SCALE (NOVOLOG) 1 VIAL SQ SCH ×4 (06:45→23:22)
[2021-09-30] MEDS ORDERED: ceFAZolin SODIUM 1 GM VIAL IVPB ONE (09:30)
[2021-09-30] MEDS ORDERED: MIDAZOLAM HCL 2 MG/2 ML SINGLE DOSE VIAL ONE (09:53)
[2021-09-30] MEDS ORDERED: LIDOCAINE HCL 1%, 10 MG/ML (50 mL VIAL) PNB ONE (10:00)
[2021-09-30] MEDS ORDERED: amLODIPine BESYLATE 10 MG TABLET (FP) PO SCH (10:00)
[2021-09-30] MEDS ORDERED: ENOXAPARIN NA (PORCINE) 40 MG/0.4 ML DISP.SYRIN SQ SCH (10:00)
[2021-09-30] MEDS ORDERED: COLLAGENASE CLOSTRIDIUM HIST. 30 GRAMS TUBE TP SCH (10:00)
[2021-09-30] MEDS ORDERED: BUPIVACAINE HCL/PF 0.5% (5 MG/ML) 30 ML VIAL IJ ONE (10:00)
[2021-09-30] MEDS ORDERED: FERROUS GLUCONATE 324 MG TAB (FP) PO SCH (10:00)
[2021-09-30] MEDS ORDERED: VANCOMYCIN 1,000 MG VIAL (RESTRICTED TO ID ONLY) ONE (10:24)
[2021-09-30] MEDS ORDERED: ONDANSETRON 4 MG/2 ML VIAL IVPUSH PRN (11:23)
[2021-09-30] MEDS ORDERED: ALBUTEROL SO4 HFA INHALER IH PRN (11:29)
[2021-09-30] MEDS: LACTATED RINGERS SOLUTION 1,000 ML IV SCH ×2 (14:59→20:31)
[2021-09-30 16:32] LABS: BASO % 0.7 % (0-2.0); EOS % 3.7 % (0-4.5); HEMATOCRIT 35.5 % (35.4-49); LYMPH % 32.6 % (8-40); MCH 27.7 pg (25.7-33.7); MCHC 33.7 g/dl (32.0-35.9); MEAN CELL VOLUME 82.1 fl (80-96); MEAN PLT VOLUME 8.1 fl (7.5-11.1); MONO % 8.6 % (3.8-10.2); NEUT % 54.4 % (42.8-82.8); PLATELET COUNT 219 10^3/uL (134-434); RBC 4.33 M/mm3 (4.00-5.60); WHITE BLOOD COUNT 4.6 K/mm3 (4.0-10.0)
[2021-09-30 16:55] LABS: CALCIUM 9.3 mg/dL (8.5-10.1)
[2021-09-30 16:56] LABS: BLOOD UREA NITROGEN 18.4 mg/dL (7-18)
[2021-09-30 16:59] LABS: CREATININE 1.1 mg/dL (0.55-1.3)
[2021-09-30] MEDS: oxyCODONE HCL 5 MG TABLET PO PRN ×2 (17:50→23:21)
[2021-09-30] MEDS: ATORVASTATIN CA 40 MG TABLET (FP) PO SCH (23:22)
[2021-10-01] MEDS ORDERED: PIPERACILLIN/TAZOBACTAM 3.375 GM VIAL IVPB ONE ×4 (01:19→18:12)
[2021-10-01] MEDS ORDERED: DEXTROSE 5%-WATER - 50 ML IVPB ONE ×4 (01:19→18:12)
[2021-10-01] MEDS: PIPERACILLIN/TAZOB 3.375 GM 3.375 GM in DEXTROSE 5%-WATER - 50 ML IVPB SCH ×3 (01:25→17:37)
[2021-10-01] MEDS: ACETAMINOPHEN 325 MG TABLET (FP) PO PRN ×3 (02:34→15:23)
[2021-10-01] MEDS: LACTATED RINGERS SOLUTION 1,000 ML IV SCH (05:10)
[2021-10-01] MEDS: INSULIN SLIDING SCALE (NOVOLOG) 1 VIAL SQ SCH ×4 (06:28→21:49)
[2021-10-01] MEDS: GABAPENTIN 300 MG CAPSULE PO SCH ×3 (06:29→21:49)
[2021-10-01] MEDS ORDERED: PT OWN MED DRAWER 7, Y5N ONE ×2 (06:46→09:21)
[2021-10-01] MEDS: oxyCODONE HCL 5 MG TABLET PO PRN ×2 (09:24→15:25)
[2021-10-01] MEDS: FERROUS GLUCONATE 324 MG TAB (FP) PO SCH (09:24)
[2021-10-01] MEDS: amLODIPine BESYLATE 10 MG TABLET (FP) PO SCH (09:26)
[2021-10-01] MEDS: ATORVASTATIN CA 40 MG TABLET (FP) PO SCH (21:49)
[2021-10-02] MEDS ORDERED: PIPERACILLIN/TAZOBACTAM 3.375 GM VIAL IVPB ONE ×3 (01:23→17:16)
[2021-10-02] MEDS ORDERED: DEXTROSE 5%-WATER - 50 ML IVPB ONE ×3 (01:23→17:16)
[2021-10-02] MEDS: PIPERACILLIN/TAZOB 3.375 GM 3.375 GM in DEXTROSE 5%-WATER - 50 ML IVPB SCH ×3 (01:25→17:27)
[2021-10-02] MEDS: GABAPENTIN 300 MG CAPSULE PO SCH ×3 (05:43→21:58)
[2021-10-02] MEDS: oxyCODONE HCL 5 MG TABLET PO PRN (05:43)
[2021-10-02] MEDS: INSULIN SLIDING SCALE (NOVOLOG) 1 VIAL SQ SCH ×4 (06:05→21:58)
[2021-10-02 09:36] LABS: BASO % 0.4 % (0-2.0); EOS % 2.6 % (0-4.5); HEMATOCRIT 33.9 % (35.4-49); HEMOGLOBIN 11.5 GM/dL (11.7-16.9); LYMPH % 22.3 % (8-40); MCH 27.5 pg (25.7-33.7); MCHC 33.8 g/dl (32.0-35.9); MEAN CELL VOLUME 81.5 fl (80-96); MEAN PLT VOLUME 7.8 fl (7.5-11.1); MONO % 10.1 % (3.8-10.2); NEUT % 64.6 % (42.8-82.8); PLATELET COUNT 214 10^3/uL (134-434); RBC 4.16 M/mm3 (4.00-5.60); RDW 13.8 % (11.9-15.9); WHITE BLOOD COUNT 6.2 K/mm3 (4.0-10.0)
[2021-10-02 09:53] LABS: CALCIUM 8.9 mg/dL (8.5-10.1)
[2021-10-02 09:54] LABS: BLOOD UREA NITROGEN 19.1 mg/dL (7-18)
[2021-10-02 09:57] LABS: CREATININE 1.2 mg/dL (0.55-1.3)
[2021-10-02] MEDS: FERROUS GLUCONATE 324 MG TAB (FP) PO SCH (12:18)
[2021-10-02] MEDS: amLODIPine BESYLATE 10 MG TABLET (FP) PO SCH (12:19)
[2021-10-02] MEDS: ACETAMINOPHEN 325 MG TABLET (FP) PO PRN (12:19)
[2021-10-02] MEDS: ATORVASTATIN CA 40 MG TABLET (FP) PO SCH (21:57)
[2021-10-03] MEDS ORDERED: PIPERACILLIN/TAZOBACTAM 3.375 GM VIAL IVPB ONE ×3 (01:53→17:38)
[2021-10-03] MEDS ORDERED: DEXTROSE 5%-WATER - 50 ML IVPB ONE ×3 (01:53→17:39)
[2021-10-03] MEDS: oxyCODONE HCL 5 MG TABLET PO PRN (01:54)
[2021-10-03] MEDS: PIPERACILLIN/TAZOB 3.375 GM 3.375 GM in DEXTROSE 5%-WATER - 50 ML IVPB SCH ×3 (01:57→17:44)
[2021-10-03] MEDS: GABAPENTIN 300 MG CAPSULE PO SCH ×3 (06:11→21:34)
[2021-10-03] MEDS: INSULIN SLIDING SCALE (NOVOLOG) 1 VIAL SQ SCH ×4 (06:12→21:35)
[2021-10-03] MEDS: FERROUS GLUCONATE 324 MG TAB (FP) PO SCH (12:34)
[2021-10-03] MEDS: amLODIPine BESYLATE 10 MG TABLET (FP) PO SCH (12:34)
[2021-10-03] MEDS: ATORVASTATIN CA 40 MG TABLET (FP) PO SCH (21:34)
[2021-10-04] MEDS ORDERED: DEXTROSE 5%-WATER - 50 ML IVPB ONE ×2 (02:35→08:19)
[2021-10-04] MEDS ORDERED: PIPERACILLIN/TAZOBACTAM 3.375 GM VIAL IVPB ONE ×2 (02:35→08:19)
[2021-10-04] MEDS: PIPERACILLIN/TAZOB 3.375 GM 3.375 GM in DEXTROSE 5%-WATER - 50 ML IVPB SCH ×2 (02:41→10:05)
[2021-10-04] MEDS: GABAPENTIN 300 MG CAPSULE PO SCH ×3 (05:01→21:37)
[2021-10-04] MEDS: oxyCODONE HCL 5 MG TABLET PO PRN (05:02)
[2021-10-04] MEDS: INSULIN SLIDING SCALE (NOVOLOG) 1 VIAL SQ SCH ×4 (06:07→21:40)
[2021-10-04] MEDS: FERROUS GLUCONATE 324 MG TAB (FP) PO SCH (10:06)
[2021-10-04] MEDS: amLODIPine BESYLATE 10 MG TABLET (FP) PO SCH (10:06)
[2021-10-04] MEDS: CEFAZOLIN 2 GM in SODIUM CHLORIDE 100 ML IVPB SCH ×2 (16:33→21:37)
[2021-10-04] MEDS: ATORVASTATIN CA 40 MG TABLET (FP) PO SCH (21:37)
[2021-10-05] MEDS: CEFAZOLIN 2 GM in SODIUM CHLORIDE 100 ML IVPB SCH ×3 (05:50→21:50)
[2021-10-05] MEDS: GABAPENTIN 300 MG CAPSULE PO SCH ×3 (05:50→21:50)
[2021-10-05] MEDS: INSULIN SLIDING SCALE (NOVOLOG) 1 VIAL SQ SCH ×4 (06:30→21:49)
[2021-10-05] MEDS: ACETAMINOPHEN 325 MG TABLET (FP) PO PRN (08:25)
[2021-10-05] MEDS: FERROUS GLUCONATE 324 MG TAB (FP) PO SCH (11:26)
[2021-10-05] MEDS: amLODIPine BESYLATE 10 MG TABLET (FP) PO SCH (11:26)
[2021-10-05] MEDS ORDERED: PT OWN MED DRAWER 7, Y5N ONE (17:44)
[2021-10-05] MEDS: ATORVASTATIN CA 40 MG TABLET (FP) PO SCH (21:50)
[2021-10-06] MEDS: CEFAZOLIN 2 GM in SODIUM CHLORIDE 100 ML IVPB SCH (06:11)
[2021-10-06] MEDS: INSULIN SLIDING SCALE (NOVOLOG) 1 VIAL SQ SCH ×3 (06:12→16:37)
[2021-10-06] MEDS: GABAPENTIN 300 MG CAPSULE PO SCH ×2 (06:12→13:39)
[2021-10-06] MEDS: FERROUS GLUCONATE 324 MG TAB (FP) PO SCH (12:02)
[2021-10-06] MEDS: amLODIPine BESYLATE 10 MG TABLET (FP) PO SCH (12:02)
[2021-10-06] MEDS ORDERED: SODIUM CHLORIDE IVPB SCH ×2 (14:00→16:00)
[2021-10-06] MEDS ORDERED: DAPTOMYCIN IVPB SCH ×2 (14:00→16:00)
[2021-10-06] MEDS ORDERED: DAPTOMYCIN IVPB ONE (15:00)
[2021-10-06] MEDS ORDERED: SODIUM CHLORIDE IVPB ONE (15:00)
[2021-10-06 15:31] LABS: BASO % 1.2 % (0-2.0); EOS % 5.2 % (0-4.5); HEMATOCRIT 34.2 % (35.4-49); HEMOGLOBIN 11.5 GM/dL (11.7-16.9); LYMPH % 25.9 % (8-40); MCH 27.5 pg (25.7-33.7); MCHC 33.6 g/dl (32.0-35.9); MEAN CELL VOLUME 81.6 fl (80-96); MEAN PLT VOLUME 7.7 fl (7.5-11.1); MONO % 9.4 % (3.8-10.2); NEUT % 58.3 % (42.8-82.8); PLATELET COUNT 295 10^3/uL (134-434); RBC 4.18 M/mm3 (4.00-5.60); RDW 13.5 % (11.9-15.9); WHITE BLOOD COUNT 4.3 K/mm3 (4.0-10.0)
[2021-10-06 15:38] VITALS: BP 144/78; PULSE 86; TEMP 98.3
[2021-10-06 15:52] LABS: ALBUMIN 2.9 g/dl (3.4-5.0); BLOOD UREA NITROGEN 20.3 mg/dL (7-18); CALCIUM 9.8 mg/dL (8.5-10.1)
[2021-10-06 15:56] LABS: CREATININE 1.2 mg/dL (0.55-1.3)
[2021-10-06 15:57] LABS: BILIRUBIN,TOTAL 0.3 mg/dL (0.2-1); TOT PROT 7.1 g/dl (6.4-8.2)
[2021-10-06] MEDS ORDERED: AMOX TR/POT CLAV 500MG/125MG TABLETS (FP) PO SCH (17:30)
[2021-10-07] MEDS ORDERED: SODIUM CHLORIDE IVPB SCH (15:00)
[2021-10-07] MEDS ORDERED: DAPTOMYCIN IVPB SCH (15:00)
== END 2021-10-06 17:54 | disposition home or self-care (01) | DRG 629 ==
LOC: JER 10:42 → JERBED 16:33 → J5S 09-26 00:37
PROVIDERS: ADMIT Family Medicine; ATTEND Family Medicine
PROC: B41DZZZ Fluoroscopy of Aorta and Bilateral Lower Extremity Arteries (ICD-10-PCS; 2021-09-29)
PROC: B40FYZZ Plain Radiography of Right Lower Extremity Arteries using Other Contrast (ICD-10-PCS; 2021-09-29)
PROC: 0QBN0ZZ Excision of Right Metatarsal, Open Approach (ICD-10-PCS; principal; 2021-10-06)
PROC: 0QBN0ZX Excision of Right Metatarsal, Open Approach, Diagnostic (ICD-10-PCS; 2021-10-06)
PROC: 3E0V329 Introduction of Other Anti-infective into Bones, Percutaneous Approach (ICD-10-PCS; 2021-10-06)
PROC: 02HV33Z Insertion of Infusion Device into Superior Vena Cava, Percutaneous Approach (ICD-10-PCS; 2021-10-06)
PROC: B518ZZA Fluoroscopy of Superior Vena Cava, Guidance (ICD-10-PCS; 2021-10-06)
DX: E11.69 Type 2 diabetes mellitus with other specified complication (principal); M86.671 Other chronic osteomyelitis, right ankle and foot; E11.52 Type 2 diabetes mellitus with diabetic peripheral angiopathy with gangrene; E11.621 Type 2 diabetes mellitus with foot ulcer; I12.9 Hypertensive chronic kidney disease with stage 1 through stage 4 chronic kidney disease, or unspecified chronic kidney disease; E11.22 Type 2 diabetes mellitus with diabetic chronic kidney disease; N18.30 Chronic kidney disease, stage 3 unspecified; I25.10 Atherosclerotic heart disease of native coronary artery without angina pectoris; E78.5 Hyperlipidemia, unspecified; E11.40 Type 2 diabetes mellitus with diabetic neuropathy, unspecified; E11.51 Type 2 diabetes mellitus with diabetic peripheral angiopathy without gangrene; E11.65 Type 2 diabetes mellitus with hyperglycemia; B95.8 Unspecified staphylococcus as the cause of diseases classified elsewhere; I25.2 Old myocardial infarction; E66.9 Obesity, unspecified; Z68.26 Body mass index [BMI] 26.0-26.9, adult; Z89.421 Acquired absence of other right toe(s); Z79.4 Long term (current) use of insulin
CPT/HCPCS: 36415; 36569; 71046-TC-FY; 73630-TC-RT-FY; 73721-RT-TC; 76000-TC-FY; 80048; 80053; 82962; 83036; 85025; 85610; 86850; 86900; 86901; 87040; 87070; 87075; 87186; 87205; 88304-TC; 88305-TC; 88311-TC; 93005; 93010; 93306-TC; 93926-TC; 94760; 97116-GP; 97162-GP; 99285-25; C9803; J0878; J1644; U0003; U0005

== ENCOUNTER 2021-10-07 12:52 | Day surgery (SDC) | payer MEDICARE, OTHER ==
[~2021-10-07 12:52] MED LIST: DAPTOMYCIN IVPB ONE; SODIUM CHLORIDE IVPB ONE
[2021-10-07 13:54] VITALS: TEMP 98.1
[2021-10-07 14:46] VITALS: BP 124/64; PULSE 74
== END 2021-10-07 15:53 | disposition home or self-care (01) ==
LOC: JINFUSION 12:52 → J7W 13:01 → JINFUSION 15:53
PROVIDERS: ATTEND Nurse Practitioner Family
DX: M86.9 Osteomyelitis, unspecified (principal); E11.9 Type 2 diabetes mellitus without complications
CPT/HCPCS: 96365; J0878

== ENCOUNTER 2021-10-08 13:31 | Day surgery (SDC) | payer MEDICARE, OTHER ==
[2021-10-08 16:46] VITALS: BP 125/75; PULSE 86; TEMP 98
== END 2021-10-08 16:49 | disposition home or self-care (01) ==
LOC: JINFUSION 13:31 → J7W 13:32 → JINFUSION 16:49
PROVIDERS: ATTEND Nurse Practitioner Family
DX: M86.9 Osteomyelitis, unspecified (principal); E11.9 Type 2 diabetes mellitus without complications
CPT/HCPCS: 96365; J0878

== ENCOUNTER 2021-10-09 08:55 | Day surgery (SDC) | payer MEDICARE, OTHER ==
[2021-10-09 10:06] LABS: CALCIUM 10.1 mg/dL (8.5-10.1)
[2021-10-09 10:07] LABS: ALBUMIN 3.5 g/dl (3.4-5.0); BLOOD UREA NITROGEN 25.4 mg/dL (7-18)
[2021-10-09 10:10] LABS: CREATININE 1.3 mg/dL (0.55-1.3)
[2021-10-09 10:12] LABS: BILIRUBIN,TOTAL 0.5 mg/dL (0.2-1)
[2021-10-09] MEDS ORDERED: DAPTOMYCIN IVPB ONE (12:30)
[2021-10-09] MEDS ORDERED: SODIUM CHLORIDE IVPB ONE (12:30)
[2021-10-09 13:30] VITALS: BP 145/78; PULSE 67; TEMP 98.9
== END 2021-10-09 14:00 | disposition home or self-care (01) ==
LOC: JINFUSION 08:55 → J7W 08:57 → JINFUSION 14:00
PROVIDERS: ATTEND Nurse Practitioner Family
DX: M86.9 Osteomyelitis, unspecified (principal); E11.9 Type 2 diabetes mellitus without complications
CPT/HCPCS: 36415; 80053; 96365; J0878

== ENCOUNTER 2021-10-10 12:46 | Day surgery (SDC) | payer MEDICARE, OTHER ==
[2021-10-10 12:58] VITALS: BP 144/78; PULSE 76; TEMP 99.1
== END 2021-10-11 07:53 | disposition home or self-care (01) ==
LOC: J7W 12:46 → JINFUSION 12:46
PROVIDERS: ATTEND Nurse Practitioner Family
DX: M86.9 Osteomyelitis, unspecified (principal); E11.9 Type 2 diabetes mellitus without complications
CPT/HCPCS: 96365; J0878

== ENCOUNTER 2021-10-11 09:29 | Day surgery (SDC) | payer MEDICARE, OTHER ==
[2021-10-11] MEDS ORDERED: SODIUM CHLORIDE IVPB ONE (10:15)
[2021-10-11] MEDS ORDERED: DAPTOMYCIN IVPB ONE (10:15)
[2021-10-11 17:12] VITALS: BP 128/78; PULSE 68; TEMP 98
== END 2021-10-11 17:15 | disposition home or self-care (01) ==
LOC: JINFUSION 09:29 → J7W 09:29 → JINFUSION 17:15
PROVIDERS: ATTEND Nurse Practitioner Family
DX: M86.9 Osteomyelitis, unspecified (principal); E11.9 Type 2 diabetes mellitus without complications
CPT/HCPCS: 96365; J0878

== ENCOUNTER 2021-10-12 09:33 | Day surgery (SDC) | payer MEDICARE, OTHER ==
[2021-10-12] MEDS ORDERED: DAPTOMYCIN IVPB ONE (10:00)
[2021-10-12] MEDS ORDERED: SODIUM CHLORIDE IVPB ONE (10:00)
[2021-10-12 10:03] VITALS: BP 135/73; PULSE 75; TEMP 97.7
== END 2021-10-12 13:30 | disposition home or self-care (01) ==
LOC: J7W 09:33 → JINFUSION 09:33
PROVIDERS: ATTEND Nurse Practitioner Family
DX: M86.9 Osteomyelitis, unspecified (principal); E11.9 Type 2 diabetes mellitus without complications
CPT/HCPCS: 96365; J0878

== ENCOUNTER 2021-10-13 12:24 | Day surgery (SDC) | payer MEDICARE, OTHER ==
[2021-10-13 13:45] VITALS: BP 144/76; PULSE 78; TEMP 98.2
== END 2021-10-13 15:50 | disposition home or self-care (01) ==
LOC: JINFUSION 12:24 → J7W 12:25 → JINFUSION 15:50
PROVIDERS: ATTEND Nurse Practitioner Family
PROC: 3E04329 Introduction of Other Anti-infective into Central Vein, Percutaneous Approach (ICD-10-PCS; principal; 2021-10-13)
PROC: 02HV33Z Insertion of Infusion Device into Superior Vena Cava, Percutaneous Approach (ICD-10-PCS; 2021-10-13)
PROC: B518ZZA Fluoroscopy of Superior Vena Cava, Guidance (ICD-10-PCS; 2021-10-13)
DX: M86.9 Osteomyelitis, unspecified (principal); E11.9 Type 2 diabetes mellitus without complications
CPT/HCPCS: 36569; 77001-TC-FY; 96365; C1751; J0878

== ENCOUNTER 2021-10-14 11:07 | Day surgery (SDC) | payer MEDICARE, OTHER ==
[2021-10-14] MEDS ORDERED: SODIUM CHLORIDE IVPB ONE (11:15)
[2021-10-14] MEDS ORDERED: DAPTOMYCIN IVPB ONE (11:15)
[2021-10-14 13:56] VITALS: BP 123/67; PULSE 72; TEMP 98.6
== END 2021-10-14 14:30 | disposition home or self-care (01) ==
LOC: JINFUSION 11:07 → J7W 11:08 → JINFUSION 14:30
PROVIDERS: ATTEND Nurse Practitioner Family
DX: M86.9 Osteomyelitis, unspecified (principal); E11.9 Type 2 diabetes mellitus without complications
CPT/HCPCS: 96365; J0878

== ENCOUNTER 2021-10-15 12:43 | Day surgery (SDC) | payer MEDICARE, OTHER ==
[2021-10-15 13:13] VITALS: BP 134/64; PULSE 64; TEMP 98.7
== END 2021-10-15 14:58 | disposition home or self-care (01) ==
LOC: JINFUSION 12:43 → J7W 12:44 → JINFUSION 14:58
PROVIDERS: ATTEND Nurse Practitioner Family
DX: M86.9 Osteomyelitis, unspecified (principal); E11.9 Type 2 diabetes mellitus without complications
CPT/HCPCS: 96365; J0878

== ENCOUNTER 2021-10-16 11:54 | Day surgery (SDC) | payer MEDICARE, OTHER ==
[2021-10-16 10:39] LABS: ALBUMIN 3.4 g/dl (3.4-5.0); BLOOD UREA NITROGEN 22.4 mg/dL (7-18); CALCIUM 9.6 mg/dL (8.5-10.1)
[2021-10-16 10:42] LABS: CREATININE 1.1 mg/dL (0.55-1.3)
[2021-10-16 10:44] LABS: BILIRUBIN,TOTAL 0.3 mg/dL (0.2-1); TOT PROT 7.6 g/dl (6.4-8.2)
[2021-10-16] MEDS ORDERED: SODIUM CHLORIDE IVPB ONE (12:30)
[2021-10-16] MEDS ORDERED: DAPTOMYCIN IVPB ONE (12:30)
[2021-10-16 13:22] VITALS: BP 135/72; PULSE 62; TEMP 98.3
== END 2021-10-16 13:24 | disposition home or self-care (01) ==
LOC: JINFUSION 11:54 → J7W 11:55 → JINFUSION 13:24
PROVIDERS: ATTEND Nurse Practitioner Family
DX: M86.9 Osteomyelitis, unspecified (principal); E11.9 Type 2 diabetes mellitus without complications
CPT/HCPCS: 36415; 80053; 96365; J0878

== ENCOUNTER 2021-10-17 09:33 | Day surgery (SDC) | payer MEDICARE, OTHER ==
[2021-10-17] MEDS ORDERED: SODIUM CHLORIDE IVPB ONE (10:00)
[2021-10-17] MEDS ORDERED: DAPTOMYCIN IVPB ONE (10:00)
[2021-10-17 14:50] VITALS: BP 116/74; PULSE 98; TEMP 98.7
== END 2021-10-17 11:05 | disposition home or self-care (01) ==
LOC: JINFUSION 09:33 → J7W 09:34 → JINFUSION 11:05
PROVIDERS: ATTEND Nurse Practitioner Family
DX: M86.9 Osteomyelitis, unspecified (principal); E11.9 Type 2 diabetes mellitus without complications
CPT/HCPCS: 96365; J0878

== ENCOUNTER 2021-10-19 10:03 | Day surgery (SDC) | payer MEDICARE, OTHER ==
[2021-10-19 11:21] VITALS: BP 130/68; PULSE 86
== END 2021-10-19 13:40 | disposition home or self-care (01) ==
LOC: J7W 10:03 → JINFUSION 10:03
PROVIDERS: ATTEND Nurse Practitioner Family
DX: M86.9 Osteomyelitis, unspecified (principal)
CPT/HCPCS: 96365; J0878

== ENCOUNTER 2021-10-20 14:54 | Day surgery (SDC) | payer MEDICARE, OTHER ==
[2021-10-20] MEDS ORDERED: DAPTOMYCIN IVPB ONE (15:00)
[2021-10-20] MEDS ORDERED: SODIUM CHLORIDE IVPB ONE (15:00)
[2021-10-20 16:53] VITALS: BP 125/66; PULSE 66; TEMP 98.5
== END 2021-10-20 16:30 | disposition home or self-care (01) ==
LOC: JINFUSION 14:54 → J7W 14:54 → JINFUSION 16:30
PROVIDERS: ATTEND Internal Medicine
DX: M86.9 Osteomyelitis, unspecified (principal)
CPT/HCPCS: 96365; J0878

== ENCOUNTER 2021-10-21 10:49 | Day surgery (SDC) | payer MEDICARE, OTHER ==
[2021-10-21] MEDS ORDERED: DAPTOMYCIN IVPB ONE (11:30)
[2021-10-21] MEDS ORDERED: SODIUM CHLORIDE IVPB ONE (11:30)
[2021-10-21 12:43] VITALS: PULSE 68; TEMP 98.3
[2021-10-21 13:14] VITALS: BP 130/72
== END 2021-10-21 13:15 | disposition home or self-care (01) ==
LOC: J7W 10:49 → JINFUSION 10:49
PROVIDERS: ATTEND Internal Medicine
DX: M86.9 Osteomyelitis, unspecified (principal)
CPT/HCPCS: 96365; J0878

== ENCOUNTER 2022-06-01 09:38 | Inpatient (IN) | payer MEDICARE, OTHER ==
[2022-06-01] MEDS ORDERED: ACETAMINOPHEN 1000 MG/100 ML BAG IVPB ONE (11:09)
[2022-06-01] MEDS ORDERED: SODIUM CHLORIDE 0.9% 500 ML INFUS.BAG IV ONE (11:09)
[2022-06-01] MEDS ORDERED: ACETAMINOPHEN INJECTION 100 ML IVPB ONE (11:46)
[2022-06-01] MEDS ORDERED: VANCOMYCIN 1 GM in D5W (PRE-DOCKED) 1,000 MG/250 ML IVPB ONE ×2 (12:46→13:59)
[2022-06-01] MEDS ORDERED: PIPERACILLIN/TAZOB 3.375 GM 3.375 GM in DEXTROSE 5%-WATER - 50 ML IVPB ONE (12:46)
[2022-06-01 12:52] LABS: BASO % 0.7 % (0-2.0); EOS % 0.8 % (0-4.5); HEMATOCRIT 39.3 % (35.4-49); HEMOGLOBIN 13.2 GM/dL (11.7-16.9); LYMPH % 14.5 % (8-40); MCH 27.1 pg (25.7-33.7); MCHC 33.5 g/dl (32.0-35.9); MEAN CELL VOLUME 80.8 fl (80-96); MEAN PLT VOLUME 7.7 fl (7.5-11.1); MONO % 8.3 % (3.8-10.2); NEUT % 75.7 % (42.8-82.8); PLATELET COUNT 248 10^3/uL (134-434); RBC 4.87 M/mm3 (4.00-5.60); RDW 13.9 % (11.9-15.9); WHITE BLOOD COUNT 5.3 K/mm3 (4.0-10.0)
[2022-06-01 12:57] LABS: INR 1.02 (0.83-1.09); PROTHROMBIN TIME (PATIENT) 11.7 SEC (9.7-13.0)
[2022-06-01 13:01] LABS: ACTIVATED PTT 30.2 SECONDS (25.2-36.5)
[2022-06-01] MEDS ORDERED: VANCOMYCIN/WATER FOR INJ (PEG) 1,000 MG/200 ML BAG IVPB ONE (13:03)
[2022-06-01] MEDS ORDERED: PIPERACILLIN/TAZOB 3.375 GM 3.375 GM/50 ML BAG IVPB ONE ×2 (13:03→18:01)
[2022-06-01 13:40] LABS: ALBUMIN 3.5 g/dl (3.4-5.0); BLOOD UREA NITROGEN 20.7 mg/dL (7-18); CALCIUM 9.4 mg/dL (8.5-10.1)
[2022-06-01 13:43] LABS: CREATININE 1.3 mg/dL (0.55-1.3)
[2022-06-01 13:44] LABS: BILIRUBIN,TOTAL 0.7 mg/dL (0.2-1); TOT PROT 7.9 g/dl (6.4-8.2)
[2022-06-01] MEDS ORDERED: ACETAMINOPHEN 500 MG TABLET (FP) PO ONE (15:34)
[2022-06-01] MEDS ORDERED: ACETAMINOPHEN 500 MG TABLET (FP) ONE (15:38)
[2022-06-01] MEDS ORDERED: ACETAMINOPHEN 325 MG TABLET (FP) ONE (15:39)
[2022-06-01] MEDS ORDERED: ACETAMINOPHEN 325 MG TABLET (FP) PO ONE (15:39)
[2022-06-01] MEDS ORDERED: ALBUTEROL SO4 HFA INHALER IH PRN (16:14)
[2022-06-01] MEDS: INSULIN SLIDING SCALE (NOVOLOG) 1 VIAL SQ SCH (18:03)
[2022-06-01] MEDS: PIPERACILLIN/TAZOB 3.375 GM 3.375 GM in DEXTROSE 5%-WATER - 50 ML IVPB SCH (18:14)
[2022-06-01] MEDS: HEPARIN NA (PORCINE) 5,000 UNITS/ML 1ML VIAL SQ SCH (23:49)
[2022-06-01] MEDS: ACETAMINOPHEN 325 MG TABLET (FP) PO PRN (23:49)
[2022-06-01] MEDS: ATORVASTATIN CA 40 MG TABLET (FP) PO SCH (23:53)
[2022-06-01] MEDS: GABAPENTIN 300 MG CAPSULE PO SCH (23:55)
[2022-06-02] MEDS: INSULIN (LEVEMIR) 100 UNITS/ML UNITS SQ SCH ×3 (00:05→23:07)
[2022-06-02] MEDS: INSULIN SLIDING SCALE (NOVOLOG) 1 VIAL SQ SCH ×5 (00:05→23:07)
[2022-06-02 01:54] VITALS: BMI 27.6
[2022-06-02] MEDS: PIPERACILLIN/TAZOB 3.375 GM 3.375 GM in DEXTROSE 5%-WATER - 50 ML IVPB SCH ×3 (02:45→17:40)
[2022-06-02] MEDS: GABAPENTIN 300 MG CAPSULE PO SCH ×3 (06:20→22:58)
[2022-06-02] MEDS: HEPARIN NA (PORCINE) 5,000 UNITS/ML 1ML VIAL SQ SCH ×3 (06:20→22:57)
[2022-06-02] MEDS: LISINOPRIL 10 MG TABLET PO SCH (09:30)
[2022-06-02] MEDS: HYDROCHLOROTHIAZIDE 12.5 MG CAPSULE (FP) PO SCH (09:30)
[2022-06-02] MEDS: ASPIRIN COATED 81 MG TABLET.EC PO SCH (09:30)
[2022-06-02] MEDS: amLODIPine BESYLATE 10 MG TABLET (FP) PO SCH (09:31)
[2022-06-02] MEDS: FOLIC ACID 1 MG TABLET (FP) PO SCH (09:58)
[2022-06-02] MEDS ORDERED: PATIENT'S OWN MEDICATION (NON-FORMULARY) (Lisinopril/Hydrochlorothiazide [Lisinopril-Hctz PO SCH (10:00)
[2022-06-02] MEDS ORDERED: PATIENT'S OWN MEDICATION (NON-FORMULARY) (Folic Acid [Folic Acid] 0.8 MG Tablet) PO SCH (10:00)
[2022-06-02] MEDS ORDERED: UBIDECARENONE 50 MG PO SCH (10:00)
[2022-06-02] MEDS ORDERED: PATIENT'S OWN MEDICATION (NON-FORMULARY) (Dapagliflozin Propanediol 10 MG Tablet) PO SCH (10:00)
[2022-06-02 10:02] LABS: BASO % 0.7 % (0-2.0); EOS % 1.7 % (0-4.5); HEMATOCRIT 35.5 % (35.4-49); HEMOGLOBIN 11.8 GM/dL (11.7-16.9); LYMPH % 26.3 % (8-40); MCH 26.8 pg (25.7-33.7); MCHC 33.4 g/dl (32.0-35.9); MEAN CELL VOLUME 80.4 fl (80-96); MONO % 14.5 % (3.8-10.2); NEUT % 56.8 % (42.8-82.8); PLATELET COUNT 209 10^3/uL (134-434); RBC 4.41 M/mm3 (4.00-5.60); RDW 13.6 % (11.9-15.9); WHITE BLOOD COUNT 3.4 K/mm3 (4.0-10.0)
[2022-06-02 10:34] LABS: BLOOD UREA NITROGEN 16.8 mg/dL (7-18); CALCIUM 8.8 mg/dL (8.5-10.1); MAGNESIUM 2.1 mg/dL (1.8-2.4)
[2022-06-02 10:36] LABS: PHOSPHOROUS 2.9 mg/dL (2.5-4.9)
[2022-06-02 10:38] LABS: TOT PROT 6.6 g/dl (6.4-8.2)
[2022-06-02 10:48] LABS: ALBUMIN 2.8 g/dl (3.4-5.0)
[2022-06-02] MEDS: ATORVASTATIN CA 40 MG TABLET (FP) PO SCH (22:57)
[2022-06-03] MEDS: PIPERACILLIN/TAZOB 3.375 GM 3.375 GM in DEXTROSE 5%-WATER - 50 ML IVPB SCH ×4 (02:40→17:37)
[2022-06-03] MEDS: HEPARIN NA (PORCINE) 5,000 UNITS/ML 1ML VIAL SQ SCH ×2 (06:53→15:06)
[2022-06-03] MEDS: GABAPENTIN 300 MG CAPSULE PO SCH ×3 (06:54→21:29)
[2022-06-03] MEDS: INSULIN (LEVEMIR) 100 UNITS/ML UNITS SQ SCH ×2 (06:57→21:36)
[2022-06-03] MEDS: INSULIN SLIDING SCALE (NOVOLOG) 1 VIAL SQ SCH ×4 (06:57→21:36)
[2022-06-03] MEDS: ASPIRIN COATED 81 MG TABLET.EC PO SCH (10:35)
[2022-06-03] MEDS: HYDROCHLOROTHIAZIDE 12.5 MG CAPSULE (FP) PO SCH (10:35)
[2022-06-03] MEDS: amLODIPine BESYLATE 10 MG TABLET (FP) PO SCH (10:35)
[2022-06-03] MEDS: LISINOPRIL 10 MG TABLET PO SCH (10:36)
[2022-06-03] MEDS: FOLIC ACID 1 MG TABLET (FP) PO SCH (10:40)
[2022-06-03 13:30] LABS: BASO % 0.8 % (0-2.0); EOS % 3.7 % (0-4.5); HEMATOCRIT 34.7 % (35.4-49); HEMOGLOBIN 11.4 GM/dL (11.7-16.9); LYMPH % 38.8 % (8-40); MCH 26.7 pg (25.7-33.7); MEAN CELL VOLUME 80.8 fl (80-96); MEAN PLT VOLUME 7.9 fl (7.5-11.1); MONO % 12.9 % (3.8-10.2); NEUT % 43.8 % (42.8-82.8); PLATELET COUNT 204 10^3/uL (134-434); RBC 4.29 M/mm3 (4.00-5.60); RDW 13.5 % (11.9-15.9); WHITE BLOOD COUNT 3.1 K/mm3 (4.0-10.0)
[2022-06-03 13:58] LABS: ALBUMIN 2.7 g/dl (3.4-5.0); CALCIUM 8.8 mg/dL (8.5-10.1); MAGNESIUM 2.1 mg/dL (1.8-2.4)
[2022-06-03 14:02] LABS: BILIRUBIN,TOTAL 0.4 mg/dL (0.2-1); CREATININE 1.2 mg/dL (0.55-1.3)
[2022-06-03 14:04] LABS: TOT PROT 6.4 g/dl (6.4-8.2)
[2022-06-03 14:15] LABS: BLOOD UREA NITROGEN 18.5 mg/dL (7-18)
[2022-06-03] MEDS ORDERED: INSULIN (LEVEMIR) 100 UNITS/ML UNITS SQ ONE (21:13)
[2022-06-03] MEDS: ATORVASTATIN CA 40 MG TABLET (FP) PO SCH (21:30)
[2022-06-04] MEDS: PIPERACILLIN/TAZOB 3.375 GM 3.375 GM in DEXTROSE 5%-WATER - 50 ML IVPB SCH ×3 (02:01→17:24)
[2022-06-04] MEDS: GABAPENTIN 300 MG CAPSULE PO SCH ×4 (06:36→22:36)
[2022-06-04] MEDS: INSULIN SLIDING SCALE (NOVOLOG) 1 VIAL SQ SCH ×4 (07:44→22:39)
[2022-06-04] MEDS: INSULIN (LEVEMIR) 100 UNITS/ML UNITS SQ SCH ×2 (07:44→22:39)
[2022-06-04 08:27] LABS: BASO % 0.5 % (0-2.0); EOS % 3.8 % (0-4.5); HEMATOCRIT 35.3 % (35.4-49); HEMOGLOBIN 11.7 GM/dL (11.7-16.9); MCH 26.8 pg (25.7-33.7); MCHC 33.3 g/dl (32.0-35.9); MEAN CELL VOLUME 80.6 fl (80-96); MEAN PLT VOLUME 7.8 fl (7.5-11.1); MONO % 9.6 % (3.8-10.2); NEUT % 54.1 % (42.8-82.8); PLATELET COUNT 242 10^3/uL (134-434); RBC 4.37 M/mm3 (4.00-5.60); RDW 13.3 % (11.9-15.9); WHITE BLOOD COUNT 3.6 K/mm3 (4.0-10.0)
[2022-06-04 08:56] LABS: ALBUMIN 2.9 g/dl (3.4-5.0); BLOOD UREA NITROGEN 20.1 mg/dL (7-18); CALCIUM 8.9 mg/dL (8.5-10.1); CREATININE 1.2 mg/dL (0.55-1.3)
[2022-06-04 08:57] LABS: MAGNESIUM 2.3 mg/dL (1.8-2.4)
[2022-06-04 08:59] LABS: BILIRUBIN,TOTAL 0.4 mg/dL (0.2-1)
[2022-06-04] MEDS: ASPIRIN COATED 81 MG TABLET.EC PO SCH (10:46)
[2022-06-04] MEDS: amLODIPine BESYLATE 10 MG TABLET (FP) PO SCH (10:46)
[2022-06-04] MEDS: HYDROCHLOROTHIAZIDE 12.5 MG CAPSULE (FP) PO SCH (10:46)
[2022-06-04] MEDS: LISINOPRIL 10 MG TABLET PO SCH (10:46)
[2022-06-04] MEDS: FOLIC ACID 1 MG TABLET (FP) PO SCH (10:47)
[2022-06-04] MEDS ORDERED: LIDOCAINE HCL 1%, 10 MG/ML (20ML VIAL) ONE (13:14)
[2022-06-04] MEDS ORDERED: HEPARIN NA (PORCINE) 5,000 UNITS/ML 1ML VIAL ONE (13:14)
[2022-06-04] MEDS ORDERED: MIDAZOLAM HCL 2 MG/2 ML SINGLE DOSE VIAL ONE (14:31)
[2022-06-04] MEDS ORDERED: PROPOFOL 20 ML ONE ×2 (14:34→14:50)
[2022-06-04] MEDS ORDERED: LIDOCAINE HCL 1%, 10 MG/ML (20ML VIAL) INF ONE (14:43)
[2022-06-04] MEDS: HEPARIN NA (PORCINE) 5,000 UNITS/ML 1ML VIAL SQ SCH ×2 (16:06→22:36)
[2022-06-04] MEDS: ATORVASTATIN CA 40 MG TABLET (FP) PO SCH (22:36)
[2022-06-05] MEDS: PIPERACILLIN/TAZOB 3.375 GM 3.375 GM in DEXTROSE 5%-WATER - 50 ML IVPB SCH ×3 (01:56→17:52)
[2022-06-05] MEDS: GABAPENTIN 300 MG CAPSULE PO SCH ×3 (05:48→21:30)
[2022-06-05] MEDS: HEPARIN NA (PORCINE) 5,000 UNITS/ML 1ML VIAL SQ SCH ×3 (05:48→21:30)
[2022-06-05] MEDS: INSULIN SLIDING SCALE (NOVOLOG) 1 VIAL SQ SCH ×4 (06:26→21:30)
[2022-06-05] MEDS: INSULIN (LEVEMIR) 100 UNITS/ML UNITS SQ SCH ×2 (06:26→21:30)
[2022-06-05 08:06] LABS: EOS % 2.9 % (0-4.5); HEMATOCRIT 35.1 % (35.4-49); HEMOGLOBIN 11.8 GM/dL (11.7-16.9); MCH 26.9 pg (25.7-33.7); MCHC 33.5 g/dl (32.0-35.9); MEAN CELL VOLUME 80.4 fl (80-96); MONO % 8.5 % (3.8-10.2); NEUT % 53.6 % (42.8-82.8); PLATELET COUNT 238 10^3/uL (134-434); RBC 4.37 M/mm3 (4.00-5.60); RDW 13.5 % (11.9-15.9); WHITE BLOOD COUNT 3.5 K/mm3 (4.0-10.0)
[2022-06-05 08:32] LABS: ALBUMIN 2.8 g/dl (3.4-5.0); BLOOD UREA NITROGEN 19.6 mg/dL (7-18); MAGNESIUM 2.2 mg/dL (1.8-2.4)
[2022-06-05 08:35] LABS: CREATININE 1.2 mg/dL (0.55-1.3)
[2022-06-05 08:36] LABS: BILIRUBIN,TOTAL 0.7 mg/dL (0.2-1); TOT PROT 6.8 g/dl (6.4-8.2)
[2022-06-05] MEDS: amLODIPine BESYLATE 10 MG TABLET (FP) PO SCH (09:45)
[2022-06-05] MEDS: FOLIC ACID 1 MG TABLET (FP) PO SCH (09:46)
[2022-06-05] MEDS: ASPIRIN COATED 81 MG TABLET.EC PO SCH (09:47)
[2022-06-05] MEDS: HYDROCHLOROTHIAZIDE 12.5 MG CAPSULE (FP) PO SCH (11:05)
[2022-06-05] MEDS: LISINOPRIL 10 MG TABLET PO SCH (11:05)
[2022-06-05] MEDS: ATORVASTATIN CA 40 MG TABLET (FP) PO SCH (21:30)
[2022-06-06] MEDS: PIPERACILLIN/TAZOB 3.375 GM 3.375 GM in DEXTROSE 5%-WATER - 50 ML IVPB SCH ×3 (01:14→17:43)
[2022-06-06] MEDS: HEPARIN NA (PORCINE) 5,000 UNITS/ML 1ML VIAL SQ SCH ×3 (06:43→22:38)
[2022-06-06] MEDS: INSULIN (LEVEMIR) 100 UNITS/ML UNITS SQ SCH ×2 (06:43→22:38)
[2022-06-06] MEDS: GABAPENTIN 300 MG CAPSULE PO SCH ×3 (06:43→22:37)
[2022-06-06] MEDS: INSULIN SLIDING SCALE (NOVOLOG) 1 VIAL SQ SCH ×4 (06:43→22:38)
[2022-06-06 08:51] LABS: BASO % 0.8 % (0-2.0); EOS % 4.8 % (0-4.5); HEMATOCRIT 37.5 % (35.4-49); HEMOGLOBIN 12.9 GM/dL (11.7-16.9); LYMPH % 36.6 % (8-40); MCH 27.6 pg (25.7-33.7); MCHC 34.5 g/dl (32.0-35.9); MEAN CELL VOLUME 80.2 fl (80-96); MONO % 7.8 % (3.8-10.2); PLATELET COUNT 268 10^3/uL (134-434); RBC 4.67 M/mm3 (4.00-5.60); RDW 13.3 % (11.9-15.9); WHITE BLOOD COUNT 3.7 K/mm3 (4.0-10.0)
[2022-06-06 09:16] LABS: ALBUMIN 3.3 g/dl (3.4-5.0); BLOOD UREA NITROGEN 21.9 mg/dL (7-18); CALCIUM 9.6 mg/dL (8.5-10.1)
[2022-06-06 09:17] LABS: MAGNESIUM 2.2 mg/dL (1.8-2.4)
[2022-06-06 09:19] LABS: CREATININE 1.2 mg/dL (0.55-1.3)
[2022-06-06 09:21] LABS: BILIRUBIN,TOTAL 0.7 mg/dL (0.2-1); TOT PROT 7.7 g/dl (6.4-8.2)
[2022-06-06] MEDS: amLODIPine BESYLATE 10 MG TABLET (FP) PO SCH (09:23)
[2022-06-06] MEDS: ASPIRIN COATED 81 MG TABLET.EC PO SCH (09:27)
[2022-06-06] MEDS: HYDROCHLOROTHIAZIDE 12.5 MG CAPSULE (FP) PO SCH (09:27)
[2022-06-06] MEDS: LISINOPRIL 10 MG TABLET PO SCH (09:27)
[2022-06-06] MEDS: FOLIC ACID 1 MG TABLET (FP) PO SCH (09:29)
[2022-06-06] MEDS: ATORVASTATIN CA 40 MG TABLET (FP) PO SCH (22:38)
[2022-06-07] MEDS: PIPERACILLIN/TAZOB 3.375 GM 3.375 GM in DEXTROSE 5%-WATER - 50 ML IVPB SCH ×3 (02:07→17:51)
[2022-06-07] MEDS: GABAPENTIN 300 MG CAPSULE PO SCH ×3 (06:03→21:15)
[2022-06-07] MEDS: HEPARIN NA (PORCINE) 5,000 UNITS/ML 1ML VIAL SQ SCH ×3 (06:03→21:13)
[2022-06-07] MEDS: INSULIN (LEVEMIR) 100 UNITS/ML UNITS SQ SCH ×2 (06:03→21:14)
[2022-06-07] MEDS: INSULIN SLIDING SCALE (NOVOLOG) 1 VIAL SQ SCH ×4 (06:04→21:14)
[2022-06-07 09:14] LABS: BASO % 0.8 % (0-2.0); EOS % 4.3 % (0-4.5); HEMOGLOBIN 12.5 GM/dL (11.7-16.9); LYMPH % 32.2 % (8-40); MCH 27.2 pg (25.7-33.7); MCHC 33.8 g/dl (32.0-35.9); MEAN CELL VOLUME 80.5 fl (80-96); MEAN PLT VOLUME 7.9 fl (7.5-11.1); MONO % 7.5 % (3.8-10.2); NEUT % 55.2 % (42.8-82.8); PLATELET COUNT 241 10^3/uL (134-434); RDW 13.1 % (11.9-15.9); WHITE BLOOD COUNT 4.3 K/mm3 (4.0-10.0)
[2022-06-07] MEDS: HYDROCHLOROTHIAZIDE 12.5 MG CAPSULE (FP) PO SCH (09:36)
[2022-06-07] MEDS: ASPIRIN COATED 81 MG TABLET.EC PO SCH (09:37)
[2022-06-07] MEDS: amLODIPine BESYLATE 10 MG TABLET (FP) PO SCH (09:37)
[2022-06-07] MEDS: FOLIC ACID 1 MG TABLET (FP) PO SCH (09:38)
[2022-06-07] MEDS: LISINOPRIL 10 MG TABLET PO SCH (09:38)
[2022-06-07 09:52] LABS: CALCIUM 9.5 mg/dL (8.5-10.1)
[2022-06-07 09:53] LABS: ALBUMIN 3.1 g/dl (3.4-5.0); BLOOD UREA NITROGEN 22.2 mg/dL (7-18)
[2022-06-07 09:54] LABS: CREATININE 1.2 mg/dL (0.55-1.3)
[2022-06-07 09:55] LABS: MAGNESIUM 2.2 mg/dL (1.8-2.4)
[2022-06-07 09:57] LABS: TOT PROT 7.5 g/dl (6.4-8.2)
[2022-06-07] MEDS: ATORVASTATIN CA 40 MG TABLET (FP) PO SCH (21:15)
[2022-06-08] MEDS: PIPERACILLIN/TAZOB 3.375 GM 3.375 GM in DEXTROSE 5%-WATER - 50 ML IVPB SCH ×3 (01:55→17:34)
[2022-06-08] MEDS: GABAPENTIN 300 MG CAPSULE PO SCH ×3 (07:09→21:35)
[2022-06-08] MEDS: INSULIN SLIDING SCALE (NOVOLOG) 1 VIAL SQ SCH ×4 (07:10→21:35)
[2022-06-08] MEDS: HEPARIN NA (PORCINE) 5,000 UNITS/ML 1ML VIAL SQ SCH ×3 (07:53→21:34)
[2022-06-08] MEDS: INSULIN (LEVEMIR) 100 UNITS/ML UNITS SQ SCH ×2 (07:53→21:35)
[2022-06-08 08:13] LABS: EOS % 4.1 % (0-4.5); HEMATOCRIT 36.8 % (35.4-49); HEMOGLOBIN 12.2 GM/dL (11.7-16.9); MCH 26.9 pg (25.7-33.7); MCHC 33.2 g/dl (32.0-35.9); MEAN CELL VOLUME 81.1 fl (80-96); MONO % 7.1 % (3.8-10.2); NEUT % 53.8 % (42.8-82.8); PLATELET COUNT 296 10^3/uL (134-434); RBC 4.54 M/mm3 (4.00-5.60); RDW 13.1 % (11.9-15.9); WHITE BLOOD COUNT 4.2 K/mm3 (4.0-10.0)
[2022-06-08 08:22] LABS: ALBUMIN 3.2 g/dl (3.4-5.0); CALCIUM 9.3 mg/dL (8.5-10.1); MAGNESIUM 2.4 mg/dL (1.8-2.4)
[2022-06-08 08:25] LABS: CREATININE 1.6 mg/dL (0.55-1.3)
[2022-06-08 08:27] LABS: BILIRUBIN,TOTAL 0.9 mg/dL (0.2-1); TOT PROT 7.6 g/dl (6.4-8.2)
[2022-06-08] MEDS ORDERED: SODIUM CHLORIDE 1,000 ML IV SCH (08:45)
[2022-06-08] MEDS: FOLIC ACID 1 MG TABLET (FP) PO SCH (09:22)
[2022-06-08] MEDS: ASPIRIN COATED 81 MG TABLET.EC PO SCH (09:22)
[2022-06-08] MEDS: HYDROCHLOROTHIAZIDE 12.5 MG CAPSULE (FP) PO SCH (09:23)
[2022-06-08] MEDS: amLODIPine BESYLATE 10 MG TABLET (FP) PO SCH (09:23)
[2022-06-08] MEDS: ATORVASTATIN CA 40 MG TABLET (FP) PO SCH (21:35)
[2022-06-09] MEDS: PIPERACILLIN/TAZOB 3.375 GM 3.375 GM in DEXTROSE 5%-WATER - 50 ML IVPB SCH ×2 (01:49→10:23)
[2022-06-09] MEDS: HEPARIN NA (PORCINE) 5,000 UNITS/ML 1ML VIAL SQ SCH ×3 (06:35→22:47)
[2022-06-09] MEDS: GABAPENTIN 300 MG CAPSULE PO SCH ×3 (06:35→22:47)
[2022-06-09] MEDS: INSULIN (LEVEMIR) 100 UNITS/ML UNITS SQ SCH ×2 (06:36→22:53)
[2022-06-09] MEDS: INSULIN SLIDING SCALE (NOVOLOG) 1 VIAL SQ SCH ×4 (06:36→22:53)
[2022-06-09 07:46] LABS: BASO % 1.4 % (0-2.0); EOS % 3.5 % (0-4.5); HEMATOCRIT 35.1 % (35.4-49); HEMOGLOBIN 11.7 GM/dL (11.7-16.9); LYMPH % 34.6 % (8-40); MCH 26.7 pg (25.7-33.7); MCHC 33.3 g/dl (32.0-35.9); MEAN CELL VOLUME 80.2 fl (80-96); MEAN PLT VOLUME 7.7 fl (7.5-11.1); NEUT % 52.5 % (42.8-82.8); PLATELET COUNT 257 10^3/uL (134-434); RBC 4.38 M/mm3 (4.00-5.60); RDW 13.5 % (11.9-15.9); WHITE BLOOD COUNT 4.1 K/mm3 (4.0-10.0)
[2022-06-09 08:17] LABS: ALBUMIN 2.8 g/dl (3.4-5.0); MAGNESIUM 2.2 mg/dL (1.8-2.4)
[2022-06-09 08:20] LABS: CREATININE 1.2 mg/dL (0.55-1.3)
[2022-06-09 08:21] LABS: BILIRUBIN,TOTAL 0.7 mg/dL (0.2-1)
[2022-06-09 08:22] LABS: TOT PROT 6.9 g/dl (6.4-8.2)
[2022-06-09] MEDS: amLODIPine BESYLATE 10 MG TABLET (FP) PO SCH (10:23)
[2022-06-09] MEDS: ASPIRIN COATED 81 MG TABLET.EC PO SCH (10:24)
[2022-06-09] MEDS: FOLIC ACID 1 MG TABLET (FP) PO SCH (10:24)
[2022-06-09] MEDS: HYDROCHLOROTHIAZIDE 12.5 MG CAPSULE (FP) PO SCH (10:24)
[2022-06-09] MEDS: ACETAMINOPHEN 325 MG TABLET (FP) PO PRN (10:27)
[2022-06-09] MEDS: ATORVASTATIN CA 40 MG TABLET (FP) PO SCH (22:47)
[2022-06-10] MEDS: HEPARIN NA (PORCINE) 5,000 UNITS/ML 1ML VIAL SQ SCH ×3 (06:22→21:18)
[2022-06-10] MEDS: GABAPENTIN 300 MG CAPSULE PO SCH ×3 (06:22→21:18)
[2022-06-10] MEDS: INSULIN SLIDING SCALE (NOVOLOG) 1 VIAL SQ SCH ×4 (06:23→21:18)
[2022-06-10] MEDS: INSULIN (LEVEMIR) 100 UNITS/ML UNITS SQ SCH ×2 (06:24→21:19)
[2022-06-10] MEDS: HYDROCHLOROTHIAZIDE 12.5 MG CAPSULE (FP) PO SCH (10:15)
[2022-06-10] MEDS: LISINOPRIL 10 MG TABLET PO SCH (10:15)
[2022-06-10] MEDS: ASPIRIN COATED 81 MG TABLET.EC PO SCH (10:15)
[2022-06-10] MEDS: amLODIPine BESYLATE 10 MG TABLET (FP) PO SCH (10:16)
[2022-06-10] MEDS: FOLIC ACID 1 MG TABLET (FP) PO SCH (10:16)
[2022-06-10] MEDS: ATORVASTATIN CA 40 MG TABLET (FP) PO SCH (21:18)
[2022-06-11] MEDS: INSULIN SLIDING SCALE (NOVOLOG) 1 VIAL SQ SCH ×4 (06:09→22:58)
[2022-06-11] MEDS: HEPARIN NA (PORCINE) 5,000 UNITS/ML 1ML VIAL SQ SCH (06:10)
[2022-06-11] MEDS: GABAPENTIN 300 MG CAPSULE PO SCH ×3 (06:10→22:55)
[2022-06-11] MEDS: INSULIN (LEVEMIR) 100 UNITS/ML UNITS SQ SCH ×2 (06:10→22:58)
[2022-06-11 07:40] LABS: BLOOD UREA NITROGEN 26.2 mg/dL (7-18); MAGNESIUM 2.2 mg/dL (1.8-2.4)
[2022-06-11 07:43] LABS: CREATININE 1.3 mg/dL (0.55-1.3)
[2022-06-11 07:45] LABS: BILIRUBIN,TOTAL 0.5 mg/dL (0.2-1); TOT PROT 6.8 g/dl (6.4-8.2)
[2022-06-11 08:04] LABS: BASO % 0.9 % (0-2.0); EOS % 3.1 % (0-4.5); HEMATOCRIT 34.1 % (35.4-49); HEMOGLOBIN 11.3 GM/dL (11.7-16.9); LYMPH % 33.9 % (8-40); MCH 26.9 pg (25.7-33.7); MCHC 33.3 g/dl (32.0-35.9); MEAN CELL VOLUME 80.8 fl (80-96); MONO % 9.3 % (3.8-10.2); NEUT % 52.8 % (42.8-82.8); PLATELET COUNT 267 10^3/uL (134-434); RBC 4.22 M/mm3 (4.00-5.60); RDW 13.7 % (11.9-15.9); WHITE BLOOD COUNT 3.8 K/mm3 (4.0-10.0)
[2022-06-11] MEDS: amLODIPine BESYLATE 10 MG TABLET (FP) PO SCH (09:56)
[2022-06-11] MEDS: LISINOPRIL 10 MG TABLET PO SCH (09:56)
[2022-06-11] MEDS: HYDROCHLOROTHIAZIDE 12.5 MG CAPSULE (FP) PO SCH (09:56)
[2022-06-11] MEDS: FOLIC ACID 1 MG TABLET (FP) PO SCH (10:05)
[2022-06-11] MEDS ORDERED: INSULIN (NOVOLOG) ASPART 100 UNITS/ML 10ML VIAL ONE (21:50)
[2022-06-11] MEDS: ATORVASTATIN CA 40 MG TABLET (FP) PO SCH (22:56)
[2022-06-12] MEDS: GABAPENTIN 300 MG CAPSULE PO SCH ×3 (06:17→22:16)
[2022-06-12] MEDS: INSULIN SLIDING SCALE (NOVOLOG) 1 VIAL SQ SCH ×4 (06:20→22:23)
[2022-06-12] MEDS: INSULIN (LEVEMIR) 100 UNITS/ML UNITS SQ SCH ×2 (06:32→22:17)
[2022-06-12] MEDS ORDERED: LIDOCAINE HCL 1%, 10 MG/ML (20ML VIAL) ONE (07:07)
[2022-06-12] MEDS ORDERED: GENTAMICIN SO4 80 MG/2 ML VIAL ONE (07:07)
[2022-06-12] MEDS ORDERED: BUPIVACAINE HCL/PF 0.5% (5MG/ML) 10 ML VIAL ONE (07:08)
[2022-06-12] MEDS ORDERED: MIDAZOLAM HCL 2 MG/2 ML SINGLE DOSE VIAL ONE (07:25)
[2022-06-12] MEDS ORDERED: PROPOFOL 60 ML ONE (07:25)
[2022-06-12] MEDS ORDERED: LIDOCAINE HCL 2% 100 MG/5 ML DISP.SYRIN ONE (07:25)
[2022-06-12] MEDS ORDERED: LIDOCAINE HCL 1%, 10 MG/ML (20ML VIAL) INF ONE (07:46)
[2022-06-12] MEDS ORDERED: ONDANSETRON 4 MG/2 ML VIAL IVPUSH PRN (08:15)
[2022-06-12] MEDS ORDERED: PROMETHAZINE HCL 25 MG/1 ML VIAL IVPUSH PRN (08:15)
[2022-06-12] MEDS ORDERED: LACTATED RINGERS SOLUTION 1,000 ML IV SCH (08:15)
[2022-06-12] MEDS ORDERED: ACETAMINOPHEN 325 MG TABLET (FP) PO PRN (08:21)
[2022-06-12] MEDS ORDERED: ALBUTEROL SO4 HFA INHALER IH PRN (08:21)
[2022-06-12] MEDS: FOLIC ACID 1 MG TABLET (FP) PO SCH (10:33)
[2022-06-12] MEDS: HYDROCHLOROTHIAZIDE 12.5 MG CAPSULE (FP) PO SCH (10:33)
[2022-06-12] MEDS: amLODIPine BESYLATE 10 MG TABLET (FP) PO SCH (10:33)
[2022-06-12] MEDS: LISINOPRIL 10 MG TABLET PO SCH (10:33)
[2022-06-12] MEDS: PIPERACILLIN/TAZOB 3.375 GM 3.375 GM in DEXTROSE 5%-WATER - 50 ML IVPB SCH ×2 (10:33→18:21)
[2022-06-12] MEDS: ASPIRIN COATED 81 MG TABLET.EC PO SCH (10:34)
[2022-06-12] MEDS: oxyCODONE HCL 5 MG TABLET PO PRN ×2 (13:06→20:22)
[2022-06-12] MEDS: ATORVASTATIN CA 40 MG TABLET (FP) PO SCH (22:16)
[2022-06-13] MEDS: PIPERACILLIN/TAZOB 3.375 GM 3.375 GM in DEXTROSE 5%-WATER - 50 ML IVPB SCH ×3 (02:08→17:27)
[2022-06-13] MEDS: oxyCODONE HCL 5 MG TABLET PO PRN ×2 (02:20→09:59)
[2022-06-13] MEDS: INSULIN SLIDING SCALE (NOVOLOG) 1 VIAL SQ SCH ×4 (06:09→21:08)
[2022-06-13] MEDS: GABAPENTIN 300 MG CAPSULE PO SCH ×3 (06:09→21:07)
[2022-06-13] MEDS: INSULIN (LEVEMIR) 100 UNITS/ML UNITS SQ SCH ×2 (07:20→21:07)
[2022-06-13 09:40] LABS: BASO % 0.6 % (0-2.0); EOS % 2.7 % (0-4.5); HEMATOCRIT 37.6 % (35.4-49); HEMOGLOBIN 12.5 GM/dL (11.7-16.9); LYMPH % 27.3 % (8-40); MCH 27.3 pg (25.7-33.7); MCHC 33.3 g/dl (32.0-35.9); MEAN CELL VOLUME 81.8 fl (80-96); MEAN PLT VOLUME 7.8 fl (7.5-11.1); MONO % 9.2 % (3.8-10.2); NEUT % 60.2 % (42.8-82.8); PLATELET COUNT 265 10^3/uL (134-434); RBC 4.59 M/mm3 (4.00-5.60); RDW 13.8 % (11.9-15.9); WHITE BLOOD COUNT 4.9 K/mm3 (4.0-10.0)
[2022-06-13] MEDS: ASPIRIN COATED 81 MG TABLET.EC PO SCH (09:52)
[2022-06-13] MEDS: LISINOPRIL 10 MG TABLET PO SCH (09:53)
[2022-06-13] MEDS: HYDROCHLOROTHIAZIDE 12.5 MG CAPSULE (FP) PO SCH (09:53)
[2022-06-13] MEDS: amLODIPine BESYLATE 10 MG TABLET (FP) PO SCH (09:53)
[2022-06-13] MEDS: FOLIC ACID 1 MG TABLET (FP) PO SCH (09:53)
[2022-06-13 09:56] LABS: INR 1.02 (0.83-1.09); PROTHROMBIN TIME (PATIENT) 11.7 SEC (9.7-13.0)
[2022-06-13 09:57] LABS: BLOOD UREA NITROGEN 28.8 mg/dL (7-18); CALCIUM 9.6 mg/dL (8.5-10.1)
[2022-06-13 09:58] LABS: ALBUMIN 3.3 g/dl (3.4-5.0)
[2022-06-13 10:00] LABS: CREATININE 1.4 mg/dL (0.55-1.3)
[2022-06-13 10:01] LABS: BILIRUBIN,TOTAL 1.4 mg/dL (0.2-1); TOT PROT 7.4 g/dl (6.4-8.2)
[2022-06-13] MEDS: ATORVASTATIN CA 40 MG TABLET (FP) PO SCH (21:07)
[2022-06-14] MEDS: PIPERACILLIN/TAZOB 3.375 GM 3.375 GM in DEXTROSE 5%-WATER - 50 ML IVPB SCH ×2 (02:47→10:19)
[2022-06-14] MEDS: INSULIN (LEVEMIR) 100 UNITS/ML UNITS SQ SCH ×2 (06:17→21:04)
[2022-06-14] MEDS: GABAPENTIN 300 MG CAPSULE PO SCH ×3 (06:17→21:04)
[2022-06-14] MEDS: INSULIN SLIDING SCALE (NOVOLOG) 1 VIAL SQ SCH ×4 (06:22→21:15)
[2022-06-14 08:33] LABS: BASO % 1.1 % (0-2.0); EOS % 1.9 % (0-4.5); HEMATOCRIT 33.7 % (35.4-49); HEMOGLOBIN 11.4 GM/dL (11.7-16.9); LYMPH % 26.6 % (8-40); MCH 27.1 pg (25.7-33.7); MCHC 33.9 g/dl (32.0-35.9); MEAN CELL VOLUME 79.7 fl (80-96); MEAN PLT VOLUME 7.8 fl (7.5-11.1); MONO % 8.7 % (3.8-10.2); NEUT % 61.7 % (42.8-82.8); PLATELET COUNT 262 10^3/uL (134-434); RBC 4.22 M/mm3 (4.00-5.60); RDW 13.6 % (11.9-15.9); WHITE BLOOD COUNT 5.4 K/mm3 (4.0-10.0)
[2022-06-14 08:51] LABS: ALBUMIN 2.9 g/dl (3.4-5.0)
[2022-06-14 08:54] LABS: CREATININE 1.5 mg/dL (0.55-1.3)
[2022-06-14 08:56] LABS: BILIRUBIN,TOTAL 0.8 mg/dL (0.2-1); TOT PROT 6.8 g/dl (6.4-8.2)
[2022-06-14] MEDS: ASPIRIN COATED 81 MG TABLET.EC PO SCH (10:19)
[2022-06-14] MEDS: FOLIC ACID 1 MG TABLET (FP) PO SCH (10:20)
[2022-06-14] MEDS: LISINOPRIL 10 MG TABLET PO SCH (10:20)
[2022-06-14] MEDS: HYDROCHLOROTHIAZIDE 12.5 MG CAPSULE (FP) PO SCH (10:20)
[2022-06-14] MEDS: amLODIPine BESYLATE 10 MG TABLET (FP) PO SCH (10:20)
[2022-06-14] MEDS: CEFTRIAXONE 2 GM in DEXTROSE 5%-WATER 100 ML IVPB SCH (15:48)
[2022-06-14] MEDS: ATORVASTATIN CA 40 MG TABLET (FP) PO SCH (21:04)
[2022-06-15] MEDS: INSULIN (LEVEMIR) 100 UNITS/ML UNITS SQ SCH ×2 (06:08→21:11)
[2022-06-15] MEDS: GABAPENTIN 300 MG CAPSULE PO SCH ×3 (06:08→21:11)
[2022-06-15] MEDS: INSULIN SLIDING SCALE (NOVOLOG) 1 VIAL SQ SCH ×4 (06:12→21:11)
[2022-06-15] MEDS: FOLIC ACID 1 MG TABLET (FP) PO SCH (10:09)
[2022-06-15] MEDS: CEFTRIAXONE 2 GM in DEXTROSE 5%-WATER 100 ML IVPB SCH (10:09)
[2022-06-15] MEDS: LISINOPRIL 10 MG TABLET PO SCH (10:10)
[2022-06-15] MEDS: amLODIPine BESYLATE 10 MG TABLET (FP) PO SCH (10:10)
[2022-06-15] MEDS: HYDROCHLOROTHIAZIDE 12.5 MG CAPSULE (FP) PO SCH (10:10)
[2022-06-15] MEDS: ASPIRIN COATED 81 MG TABLET.EC PO SCH (10:10)
[2022-06-15 10:29] LABS: BASO % 0.6 % (0-2.0); EOS % 1.6 % (0-4.5); HEMATOCRIT 35.7 % (35.4-49); HEMOGLOBIN 11.9 GM/dL (11.7-16.9); LYMPH % 25.8 % (8-40); MCH 26.8 pg (25.7-33.7); MCHC 33.2 g/dl (32.0-35.9); MEAN CELL VOLUME 80.7 fl (80-96); MONO % 8.2 % (3.8-10.2); NEUT % 63.8 % (42.8-82.8); PLATELET COUNT 293 10^3/uL (134-434); RBC 4.43 M/mm3 (4.00-5.60); RDW 13.7 % (11.9-15.9); WHITE BLOOD COUNT 5.2 K/mm3 (4.0-10.0)
[2022-06-15 10:36] LABS: CALCIUM 9.4 mg/dL (8.5-10.1)
[2022-06-15 10:37] LABS: ALBUMIN 3.1 g/dl (3.4-5.0); BLOOD UREA NITROGEN 25.4 mg/dL (7-18)
[2022-06-15 10:40] LABS: CREATININE 1.2 mg/dL (0.55-1.3)
[2022-06-15 10:41] LABS: BILIRUBIN,TOTAL 0.7 mg/dL (0.2-1); TOT PROT 7.1 g/dl (6.4-8.2)
[2022-06-15] MEDS: ATORVASTATIN CA 40 MG TABLET (FP) PO SCH (21:11)
[2022-06-16 06:13] VITALS: RESP 20
[2022-06-16] MEDS: GABAPENTIN 300 MG CAPSULE PO SCH ×2 (06:15→14:10)
[2022-06-16] MEDS: INSULIN (LEVEMIR) 100 UNITS/ML UNITS SQ SCH (06:15)
[2022-06-16] MEDS: INSULIN SLIDING SCALE (NOVOLOG) 1 VIAL SQ SCH ×2 (06:15→11:58)
[2022-06-16 09:41] LABS: BASO % 0.6 % (0-2.0); EOS % 2.2 % (0-4.5); HEMATOCRIT 36.2 % (35.4-49); HEMOGLOBIN 12.1 GM/dL (11.7-16.9); MCH 27.2 pg (25.7-33.7); MCHC 33.4 g/dl (32.0-35.9); MEAN CELL VOLUME 81.3 fl (80-96); MONO % 9.4 % (3.8-10.2); NEUT % 55.8 % (42.8-82.8); PLATELET COUNT 297 10^3/uL (134-434); RBC 4.45 M/mm3 (4.00-5.60); RDW 13.8 % (11.9-15.9); WHITE BLOOD COUNT 4.6 K/mm3 (4.0-10.0)
[2022-06-16 10:05] LABS: ALBUMIN 3.3 g/dl (3.4-5.0)
[2022-06-16 10:06] LABS: BLOOD UREA NITROGEN 22.9 mg/dL (7-18); CREATININE 1.1 mg/dL (0.55-1.3)
[2022-06-16 10:07] LABS: BILIRUBIN,TOTAL 0.8 mg/dL (0.2-1); TOT PROT 7.5 g/dl (6.4-8.2)
[2022-06-16] MEDS: CEFTRIAXONE 2 GM in DEXTROSE 5%-WATER 100 ML IVPB SCH (10:07)
[2022-06-16] MEDS: HYDROCHLOROTHIAZIDE 12.5 MG CAPSULE (FP) PO SCH (10:07)
[2022-06-16] MEDS: amLODIPine BESYLATE 10 MG TABLET (FP) PO SCH (10:07)
[2022-06-16] MEDS: ASPIRIN COATED 81 MG TABLET.EC PO SCH (10:07)
[2022-06-16] MEDS: LISINOPRIL 10 MG TABLET PO SCH (10:07)
[2022-06-16] MEDS: FOLIC ACID 1 MG TABLET (FP) PO SCH (10:08)
[2022-06-16 10:12] LABS: CALCIUM 9.8 mg/dL (8.5-10.1)
[2022-06-16 15:10] VITALS: BP 154/91; PULSE 73; TEMP 97.9
== END 2022-06-16 16:00 | disposition home or self-care (01) | DRG 623 ==
LOC: JER 09:38 → JERBED 12:10 → J7W 22:41
PROVIDERS: ADMIT Family Medicine; ATTEND Nurse Practitioner Acute Care
PROC: B40DYZZ Plain Radiography of Aorta and Bilateral Lower Extremity Arteries using Other Contrast (ICD-10-PCS; 2022-06-04)
PROC: B40FYZZ Plain Radiography of Right Lower Extremity Arteries using Other Contrast (ICD-10-PCS; 2022-06-04)
PROC: 0Q9Q3ZX Drainage of Right Toe Phalanx, Percutaneous Approach, Diagnostic (ICD-10-PCS; 2022-06-12)
PROC: 0JBQ0ZZ Excision of Right Foot Subcutaneous Tissue and Fascia, Open Approach (ICD-10-PCS; principal; 2022-06-12 07:55)
PROC: 02HV33Z Insertion of Infusion Device into Superior Vena Cava, Percutaneous Approach (ICD-10-PCS; 2022-06-15)
PROC: B518ZZA Fluoroscopy of Superior Vena Cava, Guidance (ICD-10-PCS; 2022-06-15)
DX: E11.69 Type 2 diabetes mellitus with other specified complication (principal); E11.52 Type 2 diabetes mellitus with diabetic peripheral angiopathy with gangrene; M86.671 Other chronic osteomyelitis, right ankle and foot; I96 Gangrene, not elsewhere classified; B95.61 Methicillin susceptible Staphylococcus aureus infection as the cause of diseases classified elsewhere; E11.51 Type 2 diabetes mellitus with diabetic peripheral angiopathy without gangrene; E11.621 Type 2 diabetes mellitus with foot ulcer; L97.519 Non-pressure chronic ulcer of other part of right foot with unspecified severity; N17.9 Acute kidney failure, unspecified; I25.10 Atherosclerotic heart disease of native coronary artery without angina pectoris; E78.5 Hyperlipidemia, unspecified; I25.2 Old myocardial infarction; I12.9 Hypertensive chronic kidney disease with stage 1 through stage 4 chronic kidney disease, or unspecified chronic kidney disease; E11.22 Type 2 diabetes mellitus with diabetic chronic kidney disease; N18.30 Chronic kidney disease, stage 3 unspecified
CPT/HCPCS: 36415; 36558; 71046-TC-FY; 73630-TC-RT-FY; 76000-TC-FY; 77001-TC-FY; 80053; 82962; 83036; 83605; 83735; 84100; 84443; 85025; 85610; 85651; 85730; 86140; 86850; 86900; 86901; 87040; 87070; 87075; 87186; 87205; 88304-TC; 93005; 93010; 94760; 97116-GP; 99285-25; C1751; C9803-CS; J1644; U0003; U0005

== ENCOUNTER 2022-06-17 13:28 | Day surgery (SDC) | payer MEDICARE, OTHER ==
[2022-06-17] MEDS ORDERED: CEFTRIAXONE 2 GM in DEXTROSE 5%-WATER 100 ML IVPB ONE (14:00)
[2022-06-17 14:54] VITALS: BP 131/60; PULSE 72; RESP 16; TEMP 99.4
== END 2022-06-17 15:05 | disposition home or self-care (01) ==
LOC: FINFUSION 13:28 → FM/S 13:33 → FINFUSION 15:05
PROVIDERS: ATTEND Internal Medicine Infectious Disease
DX: M86.9 Osteomyelitis, unspecified (principal)
CPT/HCPCS: 96365

== ENCOUNTER 2022-06-18 13:36 | Day surgery (SDC) | payer MEDICARE, OTHER ==
[2022-06-18] MEDS ORDERED: CEFTRIAXONE 2 GM in DEXTROSE 5%-WATER 100 ML IVPB ONE (14:00)
[2022-06-18 14:52] VITALS: BP 156/69; PULSE 62; RESP 18; TEMP 98.9
== END 2022-06-18 16:07 | disposition home or self-care (01) ==
LOC: FINFUSION 13:36 → FM/S 13:37 → FINFUSION 16:07
PROVIDERS: ATTEND Internal Medicine Infectious Disease
DX: M86.671 Other chronic osteomyelitis, right ankle and foot (principal)
CPT/HCPCS: 96365

== ENCOUNTER 2022-06-19 13:33 | Day surgery (SDC) | payer MEDICARE, OTHER ==
[2022-06-19 13:57] VITALS: RESP 18; TEMP 98.6
[2022-06-19] MEDS ORDERED: CEFTRIAXONE 2 GM in DEXTROSE 5%-WATER 100 ML IVPB ONE (14:00)
[2022-06-19 14:37] VITALS: BP 130/60; PULSE 68
== END 2022-06-19 14:37 | disposition home or self-care (01) ==
LOC: FM/S 13:33 → FINFUSION 13:33
PROVIDERS: ATTEND Internal Medicine Infectious Disease
DX: M86.671 Other chronic osteomyelitis, right ankle and foot (principal)
CPT/HCPCS: 96365

== ENCOUNTER 2022-06-20 13:22 | Day surgery (SDC) | payer MEDICARE, OTHER ==
[2022-06-20] MEDS ORDERED: cefTRIAXone 2 GM/100 ML BAG (PRE-DOCKED) IVPB SCH (13:45)
[2022-06-20 14:46] VITALS: BP 118/68; PULSE 58; RESP 18; TEMP 98.4
== END 2022-06-20 14:47 | disposition home or self-care (01) ==
LOC: FINFUSION 13:22 → FM/S 13:23 → FINFUSION 14:47
PROVIDERS: ATTEND Internal Medicine Infectious Disease
DX: M86.671 Other chronic osteomyelitis, right ankle and foot (principal)
CPT/HCPCS: 96365

== ENCOUNTER 2022-06-21 13:40 | Day surgery (SDC) | payer MEDICARE, OTHER ==
[2022-06-21] MEDS ORDERED: CEFTRIAXONE 2 GM in DEXTROSE 5%-WATER 100 ML IVPB ONE (14:15)
[2022-06-21 14:57] VITALS: BP 135/71; PULSE 70; RESP 18; TEMP 98.9
== END 2022-06-21 14:59 | disposition home or self-care (01) ==
LOC: FM/S 13:40 → FINFUSION 13:40
PROVIDERS: ATTEND Internal Medicine Infectious Disease
DX: M86.671 Other chronic osteomyelitis, right ankle and foot (principal)
CPT/HCPCS: 96365

== ENCOUNTER 2022-06-22 13:21 | Day surgery (SDC) | payer MEDICARE, OTHER ==
[~2022-06-22 13:21] MED LIST changes: +CEFTRIAXONE 2 GM in SODIUM CHLORIDE 100 ML IVPB ONE; -DAPTOMYCIN IVPB ONE; -SODIUM CHLORIDE IVPB ONE
[2022-06-22 13:57] VITALS: BP 146/79; PULSE 70; RESP 16; TEMP 99
== END 2022-06-22 14:01 | disposition home or self-care (01) ==
LOC: FINFUSION 13:21 → FM/S 13:25 → FINFUSION 14:01
PROVIDERS: ATTEND Internal Medicine Infectious Disease
DX: M86.671 Other chronic osteomyelitis, right ankle and foot (principal)
CPT/HCPCS: 96365

== ENCOUNTER 2022-06-23 13:28 | Day surgery (SDC) | payer MEDICARE, OTHER ==
[2022-06-23 14:33] VITALS: BP 149/71; PULSE 79; RESP 16; TEMP 99
== END 2022-06-23 14:39 | disposition home or self-care (01) ==
LOC: FINFUSION 13:28 → FM/S 13:30 → FINFUSION 14:39
PROVIDERS: ATTEND Internal Medicine Infectious Disease
DX: M86.671 Other chronic osteomyelitis, right ankle and foot (principal)
CPT/HCPCS: 96365

== ENCOUNTER 2022-06-24 13:16 | Day surgery (SDC) | payer MEDICARE, OTHER ==
[2022-06-24] MEDS ORDERED: CEFTRIAXONE 2 GM in SODIUM CHLORIDE 100 ML IVPB ONE (14:00)
[2022-06-24 14:34] LABS: HEMATOCRIT 37.6 % (35.4-49); MCH 28.7 pg (25.7-33.7); MCHC 34.5 g/dl (32.0-35.9); MEAN PLT VOLUME 8.2 fl (7.5-11.1); PLATELET COUNT 266.2 10^3/uL (134-434); RBC 4.53 10^6/uL (4.00-5.60); RDW 14.6 % (11.9-15.9); WHITE BLOOD COUNT 4.4 10^3/uL (4.0-10.8)
[2022-06-24 14:43] LABS: ALBUMIN 3.8 g/dl (3.4-5.0); BILIRUBIN,TOTAL 0.7 mg/dl (0.2-1); CALCIUM 9.9 mg/dl (8.5-10); CREATININE 1.3 mg/dl (0.55-1.3); TOT PROT 7.7 g/dl (6.4-8.2)
[2022-06-24 14:57] VITALS: BP 127/75; PULSE 75; RESP 18; TEMP 98.5
== END 2022-06-24 16:08 | disposition home or self-care (01) ==
LOC: FINFUSION 13:16 → FM/S 13:20 → FINFUSION 16:08
PROVIDERS: ATTEND Internal Medicine Infectious Disease
DX: M86.671 Other chronic osteomyelitis, right ankle and foot (principal)
CPT/HCPCS: 36415; 80053; 85027; 96365

== ENCOUNTER 2022-06-25 13:26 | Day surgery (SDC) | payer MEDICARE, OTHER ==
[2022-06-25] MEDS ORDERED: CEFTRIAXONE 2 GM in SODIUM CHLORIDE 100 ML IVPB ONE (14:00)
[2022-06-25 14:37] VITALS: BP 148/68; PULSE 68; RESP 18; TEMP 98.2
== END 2022-06-25 14:37 | disposition home or self-care (01) ==
LOC: FINFUSION 13:26 → FM/S 13:29 → FINFUSION 14:37
PROVIDERS: ATTEND Internal Medicine Infectious Disease
DX: M86.671 Other chronic osteomyelitis, right ankle and foot (principal)
CPT/HCPCS: 96365

== ENCOUNTER 2022-06-26 11:03 | Day surgery (SDC) | payer MEDICARE, OTHER ==
[2022-06-26] MEDS ORDERED: CEFTRIAXONE 2 GM in SODIUM CHLORIDE 100 ML IVPB ONE (14:00)
[2022-06-30 09:10] VITALS: BP 125/72; PULSE 56; RESP 18; TEMP 98.1
== END 2022-06-26 14:33 | disposition home or self-care (01) ==
LOC: FINFUSION 11:03 → FM/S 13:27 → FINFUSION 14:33
PROVIDERS: ATTEND Internal Medicine Infectious Disease
DX: M86.671 Other chronic osteomyelitis, right ankle and foot (principal)
CPT/HCPCS: 96365

== ENCOUNTER 2022-06-27 08:25 | Day surgery (SDC) | payer MEDICARE, OTHER ==
[2022-06-27] MEDS ORDERED: cefTRIAXone 2 GM/100 ML BAG (PRE-DOCKED) IVPB SCH (13:45)
[2022-06-27 13:52] VITALS: RESP 18; TEMP 98.8
[2022-06-27 14:21] VITALS: BP 126/75; PULSE 74
== END 2022-06-27 14:21 | disposition home or self-care (01) ==
LOC: FINFUSION 08:25 → FM/S 08:29 → FINFUSION 14:21
PROVIDERS: ATTEND Internal Medicine Infectious Disease
DX: M86.671 Other chronic osteomyelitis, right ankle and foot (principal)
CPT/HCPCS: 96365

== ENCOUNTER 2022-06-28 13:36 | Day surgery (SDC) | payer MEDICARE, OTHER ==
[2022-06-28 14:33] VITALS: PULSE 75; RESP 18; TEMP 98.1
[2022-06-28] MEDS ORDERED: CEFTRIAXONE 2 GM in DEXTROSE 5%-WATER 100 ML IVPB ONE (14:45)
[2022-06-28 14:47] VITALS: BP 125/72
== END 2022-06-28 14:48 | disposition home or self-care (01) ==
LOC: FINFUSION 13:36 → FM/S 13:42 → FINFUSION 14:48
PROVIDERS: ATTEND Internal Medicine Infectious Disease
DX: M86.671 Other chronic osteomyelitis, right ankle and foot (principal)
CPT/HCPCS: 96365

== ENCOUNTER 2022-06-29 13:33 | Day surgery (SDC) | payer MEDICARE, OTHER ==
[2022-06-29] MEDS ORDERED: CEFTRIAXONE 2 GM in DEXTROSE 5%-WATER 100 ML IVPB ONE (14:00)
[2022-06-29 14:23] VITALS: BP 146/69; PULSE 77; RESP 18; TEMP 98.8
== END 2022-06-29 14:38 | disposition home or self-care (01) ==
LOC: FINFUSION 13:33 → FM/S 13:35 → FINFUSION 14:38
PROVIDERS: ATTEND Internal Medicine Infectious Disease
DX: M86.671 Other chronic osteomyelitis, right ankle and foot (principal)
CPT/HCPCS: 96365

== ENCOUNTER 2022-06-30 08:09 | Day surgery (SDC) | payer MEDICARE, OTHER ==
[2022-06-30] MEDS ORDERED: CEFTRIAXONE 2 GM in DEXTROSE 5%-WATER 100 ML IVPB ONE (09:30)
[2022-06-30 11:36] VITALS: BP 130/71; PULSE 60; RESP 17; TEMP 98.3
== END 2022-06-30 11:30 | disposition home or self-care (01) ==
LOC: FINFUSION 08:09 → J7W 08:09 → FINFUSION 11:30
PROVIDERS: ATTEND Internal Medicine Infectious Disease
DX: M86.671 Other chronic osteomyelitis, right ankle and foot (principal)
CPT/HCPCS: 96365

== ENCOUNTER 2022-07-01 08:33 | Day surgery (SDC) | payer MEDICARE, OTHER ==
[2022-07-01] MEDS ORDERED: CEFTRIAXONE 2 GM in DEXTROSE 5%-WATER 100 ML IVPB ONE (09:45)
[2022-07-01 11:37] LABS: HEMATOCRIT 38.2 % (35.4-49); HEMOGLOBIN 12.4 GM/dL (11.7-16.9); MCH 26.8 pg (25.7-33.7); MCHC 32.4 g/dl (32.0-35.9); MEAN CELL VOLUME 82.6 fl (80-96); MEAN PLT VOLUME 8.8 fl (7.5-11.1); PLATELET COUNT 192 10^3/uL (134-434); RBC 4.62 M/mm3 (4.00-5.60); RDW 13.8 % (11.9-15.9); WHITE BLOOD COUNT 4.7 K/mm3 (4.0-10.0)
[2022-07-01 11:43] VITALS: BP 150/71; PULSE 78; RESP 20; TEMP 98.2
[2022-07-01 12:01] LABS: CALCIUM 9.4 mg/dL (8.5-10.1)
[2022-07-01 12:02] LABS: ALBUMIN 3.6 g/dl (3.4-5.0); BLOOD UREA NITROGEN 19.2 mg/dL (7-18)
[2022-07-01 12:05] LABS: CREATININE 1.2 mg/dL (0.55-1.3)
[2022-07-01 12:06] LABS: BILIRUBIN,TOTAL 0.4 mg/dL (0.2-1); TOT PROT 7.6 g/dl (6.4-8.2)
== END 2022-07-01 11:45 | disposition home or self-care (01) ==
LOC: J7W 08:33 → JINFUSION 08:33
PROVIDERS: ATTEND Internal Medicine Infectious Disease
DX: M86.671 Other chronic osteomyelitis, right ankle and foot (principal)
CPT/HCPCS: 36415; 80053; 85027; 96365

== ENCOUNTER 2022-07-02 08:23 | Day surgery (SDC) | payer MEDICARE, OTHER ==
[2022-07-02] MEDS ORDERED: CEFTRIAXONE 2 GM in DEXTROSE 5%-WATER 100 ML IVPB SCH (10:00)
[2022-07-02 11:39] VITALS: BP 144/71; PULSE 65; RESP 20; TEMP 98.1
== END 2022-07-02 11:53 | disposition home or self-care (01) ==
LOC: JINFUSION 08:23 → J7W 08:45 → JINFUSION 11:53
PROVIDERS: ATTEND Internal Medicine Infectious Disease
DX: M86.9 Osteomyelitis, unspecified (principal)
CPT/HCPCS: 96365

== ENCOUNTER 2022-07-03 09:41 | Day surgery (SDC) | payer MEDICARE, OTHER ==
[2022-07-03] MEDS ORDERED: CEFTRIAXONE 2 GM in DEXTROSE 5%-WATER 100 ML IVPB ONE (11:15)
[2022-07-03 12:43] VITALS: BP 153/78; PULSE 69; RESP 18; TEMP 98.5
== END 2022-07-03 11:50 | disposition home or self-care (01) ==
LOC: J7W 09:41 → JINFUSION 09:41
PROVIDERS: ATTEND Internal Medicine Infectious Disease
DX: M86.9 Osteomyelitis, unspecified (principal)
CPT/HCPCS: 96365

== ENCOUNTER 2022-07-04 07:48 | Day surgery (SDC) | payer MEDICARE, OTHER ==
[2022-07-04] MEDS ORDERED: CEFTRIAXONE 2 GM in DEXTROSE 5%-WATER 100 ML IVPB ONE (08:30)
[2022-07-04 09:05] VITALS: BP 147/74; PULSE 73; RESP 20; TEMP 98.1
== END 2022-07-04 09:14 | disposition home or self-care (01) ==
LOC: JINFUSION 07:48 → J7W 07:48 → JINFUSION 09:14
PROVIDERS: ATTEND Internal Medicine Infectious Disease
DX: M86.9 Osteomyelitis, unspecified (principal)
CPT/HCPCS: 96365

== ENCOUNTER 2022-07-05 07:55 | Day surgery (SDC) | payer MEDICARE, OTHER ==
[2022-07-05] MEDS ORDERED: CEFTRIAXONE 2 GM in DEXTROSE 5%-WATER 100 ML IVPB ONE (08:00)
[2022-07-05 15:13] VITALS: BP 146/74; PULSE 83; RESP 20; TEMP 98.2
== END 2022-07-05 09:00 | disposition home or self-care (01) ==
LOC: J7W 07:55 → JINFUSION 07:55
PROVIDERS: ATTEND Internal Medicine Infectious Disease
DX: M86.9 Osteomyelitis, unspecified (principal)
CPT/HCPCS: 96365

== ENCOUNTER 2022-07-06 08:48 | Day surgery (SDC) | payer MEDICARE, OTHER ==
[2022-07-06] MEDS ORDERED: CEFTRIAXONE 2 GM in DEXTROSE 5%-WATER 100 ML IVPB ONE (10:30)
[2022-07-06 11:33] VITALS: RESP 20; TEMP 97.9
[2022-07-06 11:38] VITALS: BP 130/76; PULSE 66
== END 2022-07-06 11:39 | disposition home or self-care (01) ==
LOC: JINFUSION 08:48 → J7W 08:49 → JINFUSION 11:39
PROVIDERS: ATTEND Internal Medicine Infectious Disease
PROC: 3E033GC Introduction of Other Therapeutic Substance into Peripheral Vein, Percutaneous Approach (ICD-10-PCS; principal; 2022-07-06)
DX: M86.9 Osteomyelitis, unspecified (principal)
CPT/HCPCS: 96365; 96367

== ENCOUNTER 2022-07-07 08:33 | Day surgery (SDC) | payer MEDICARE, OTHER ==
[2022-07-07] MEDS ORDERED: CEFTRIAXONE 2 GM in DEXTROSE 5%-WATER 100 ML IVPB ONE (10:00)
[2022-07-07 11:00] VITALS: TEMP 98.6
[2022-07-07 11:42] VITALS: BP 185/104; PULSE 91; RESP 19
== END 2022-07-07 12:30 | disposition home or self-care (01) ==
LOC: JINFUSION 08:33 → J7W 08:34 → JINFUSION 12:30
PROVIDERS: ATTEND Internal Medicine Infectious Disease
DX: M86.9 Osteomyelitis, unspecified (principal)
CPT/HCPCS: 96365

== ENCOUNTER 2022-07-08 08:00 | Day surgery (SDC) | payer MEDICARE, OTHER ==
[2022-07-08 09:15] LABS: HEMATOCRIT 36.8 % (35.4-49); HEMOGLOBIN 12.4 GM/dL (11.7-16.9); MCH 27.7 pg (25.7-33.7); MCHC 33.8 g/dl (32.0-35.9); MEAN PLT VOLUME 8.1 fl (7.5-11.1); PLATELET COUNT 188 10^3/uL (134-434); RBC 4.49 M/mm3 (4.00-5.60); WHITE BLOOD COUNT 3.2 K/mm3 (4.0-10.0)
[2022-07-08 09:49] LABS: ALBUMIN 3.5 g/dl (3.4-5.0); BLOOD UREA NITROGEN 22.6 mg/dL (7-18); CALCIUM 9.6 mg/dL (8.5-10.1)
[2022-07-08 09:52] LABS: CREATININE 1.4 mg/dL (0.55-1.3)
[2022-07-08 09:54] LABS: BILIRUBIN,TOTAL 0.9 mg/dL (0.2-1); TOT PROT 7.5 g/dl (6.4-8.2)
[2022-07-08] MEDS ORDERED: CEFTRIAXONE 2 GM in DEXTROSE 5%-WATER 100 ML IVPB ONE (12:00)
[2022-07-08 12:58] VITALS: BP 131/74; PULSE 74; RESP 17; TEMP 98.7
== END 2022-07-08 14:07 | disposition home or self-care (01) ==
LOC: JINFUSION 08:00 → J7W 08:05 → JINFUSION 14:07
PROVIDERS: ATTEND Internal Medicine Infectious Disease
PROC: 3E033GC Introduction of Other Therapeutic Substance into Peripheral Vein, Percutaneous Approach (ICD-10-PCS; principal; 2022-07-08)
DX: M86.9 Osteomyelitis, unspecified (principal)
CPT/HCPCS: 36415; 80053; 85027; 96365

== ENCOUNTER 2022-07-09 10:09 | Day surgery (SDC) | payer MEDICARE, OTHER ==
[2022-07-09] MEDS ORDERED: CEFTRIAXONE 2 GM in DEXTROSE 5%-WATER 100 ML IVPB ONE (11:00)
[2022-07-09 11:42] VITALS: RESP 18; TEMP 98.5
[2022-07-09 13:28] VITALS: BP 151/80; PULSE 66
== END 2022-07-09 13:45 | disposition home or self-care (01) ==
LOC: JINFUSION 10:09 → J7W 10:09 → JINFUSION 13:45
PROVIDERS: ATTEND Internal Medicine Infectious Disease
DX: M86.9 Osteomyelitis, unspecified (principal)
CPT/HCPCS: 96365

== ENCOUNTER 2022-07-10 10:56 | Day surgery (SDC) | payer MEDICARE, OTHER ==
[2022-07-10] MEDS ORDERED: CEFTRIAXONE 2 GM in DEXTROSE 5%-WATER 100 ML IVPB ONE (11:00)
[2022-07-10 12:24] VITALS: BP 160/78; PULSE 76; RESP 20; TEMP 98.6
== END 2022-07-10 12:23 | disposition home or self-care (01) ==
LOC: JINFUSION 10:56 → J7W 10:58 → JINFUSION 12:23
PROVIDERS: ATTEND Internal Medicine Medical Oncology
DX: M86.9 Osteomyelitis, unspecified (principal)
CPT/HCPCS: 96365

== ENCOUNTER 2022-07-11 07:58 | Day surgery (SDC) | payer MEDICARE, OTHER ==
[2022-07-11 08:06] VITALS: RESP 18; TEMP 98.9
[2022-07-11] MEDS ORDERED: CEFTRIAXONE 2 GM in DEXTROSE 5%-WATER 100 ML IVPB ONE (08:15)
[2022-07-11 12:42] VITALS: BP 112/66; PULSE 72
== END 2022-07-11 09:20 | disposition home or self-care (01) ==
LOC: JINFUSION 07:58 → J7W 07:58 → JINFUSION 09:20
PROVIDERS: ATTEND Internal Medicine Infectious Disease
DX: M86.9 Osteomyelitis, unspecified (principal)
CPT/HCPCS: 96365

== ENCOUNTER 2022-07-12 08:51 | Day surgery (SDC) | payer MEDICARE, OTHER ==
[~2022-07-12 08:51] MED LIST changes: +CEFTRIAXONE 2 GM in DEXTROSE 5%-WATER 100 ML IVPB ONE; -CEFTRIAXONE 2 GM in SODIUM CHLORIDE 100 ML IVPB ONE
[2022-07-12 11:38] VITALS: BP 151/81; PULSE 87; RESP 17; TEMP 99
== END 2022-07-12 14:42 | disposition home or self-care (01) ==
LOC: J7W 08:51 → JINFUSION 08:51
PROVIDERS: ATTEND Internal Medicine Infectious Disease
DX: M86.9 Osteomyelitis, unspecified (principal)
CPT/HCPCS: 96365

== ENCOUNTER 2022-07-13 10:02 | Day surgery (SDC) | payer MEDICARE, OTHER ==
[2022-07-13] MEDS ORDERED: CEFTRIAXONE 2 GM in DEXTROSE 5%-WATER 100 ML IVPB ONE (10:15)
[2022-07-13 12:26] VITALS: RESP 20; TEMP 98.5
[2022-07-13 12:28] VITALS: BP 136/72; PULSE 64
== END 2022-07-13 12:30 | disposition home or self-care (01) ==
LOC: JINFUSION 10:02 → J7W 10:03 → JINFUSION 12:30
PROVIDERS: ATTEND Internal Medicine Infectious Disease
DX: M86.9 Osteomyelitis, unspecified (principal)
CPT/HCPCS: 96365

== ENCOUNTER 2022-07-14 09:44 | Day surgery (SDC) | payer MEDICARE, OTHER ==
[2022-07-14] MEDS ORDERED: CEFTRIAXONE 2 GM in DEXTROSE 5%-WATER 100 ML IVPB ONE (10:00)
[2022-07-14 16:25] VITALS: BP 145/75; PULSE 72; RESP 18; TEMP 98.4
== END 2022-07-14 11:30 | disposition home or self-care (01) ==
LOC: JINFUSION 09:44 → J7W 09:45 → JINFUSION 11:30
PROVIDERS: ATTEND Internal Medicine Infectious Disease
DX: M86.9 Osteomyelitis, unspecified (principal)
CPT/HCPCS: 96365

== ENCOUNTER 2022-07-15 09:35 | Day surgery (SDC) | payer MEDICARE, OTHER ==
[2022-07-15] MEDS ORDERED: CEFTRIAXONE 2 GM in DEXTROSE 5%-WATER 100 ML IVPB ONE (10:00)
[2022-07-15 12:22] LABS: BASO % 0.9 % (0-2.0); EOS % 3.8 % (0-4.5); HEMATOCRIT 36.6 % (35.4-49); HEMOGLOBIN 12.2 GM/dL (11.7-16.9); MCH 27.3 pg (25.7-33.7); MCHC 33.2 g/dl (32.0-35.9); MEAN CELL VOLUME 82.3 fl (80-96); MEAN PLT VOLUME 8.3 fl (7.5-11.1); MONO % 7.9 % (3.8-10.2); NEUT % 50.4 % (42.8-82.8); PLATELET COUNT 213 10^3/uL (134-434); RBC 4.45 M/mm3 (4.00-5.60); RDW 14.1 % (11.9-15.9); WHITE BLOOD COUNT 4.3 K/mm3 (4.0-10.0)
[2022-07-15 12:32] VITALS: BP 148/71; PULSE 58; RESP 20; TEMP 98.9
[2022-07-15 12:42] LABS: CHLORIDE 107 mmol/L (98-107); SODIUM 141 mmol/L (136-145)
[2022-07-15 12:43] LABS: CALCIUM 9.6 mg/dL (8.5-10.1)
[2022-07-15 12:44] LABS: ANION GAP 8 MMOL/L (8-16); BLOOD UREA NITROGEN 19.5 mg/dL (7-18); CO2 27 mmol/L (21-32); GLUCOSE,RANDOM 163 mg/dL (74-106)
[2022-07-15 12:47] LABS: CREATININE 1.1 mg/dL (0.55-1.3)
[2022-07-15 13:13] LABS: ERYTHROCYTE SEDIMENTATION RATE 18 mm/hr (0-20)
== END 2022-07-15 12:00 | disposition home or self-care (01) ==
LOC: JINFUSION 09:35 → J7W 09:36 → JINFUSION 12:00
PROVIDERS: ATTEND Internal Medicine Infectious Disease
DX: M86.9 Osteomyelitis, unspecified (principal)
CPT/HCPCS: 36415; 80048; 82550; 82553; 85025; 85651; 86140; 96365

== ENCOUNTER 2022-07-16 11:32 | Day surgery (SDC) | payer MEDICARE, OTHER ==
[2022-07-16] MEDS ORDERED: CEFTRIAXONE 2 GM in DEXTROSE 5%-WATER 100 ML IVPB ONE (11:45)
[2022-07-16 11:52] VITALS: BP 157/82; PULSE 64
[2022-07-16 17:53] VITALS: RESP 18
[2022-07-16 17:55] VITALS: TEMP 98.7
== END 2022-07-16 12:50 | disposition home or self-care (01) ==
LOC: JINFUSION 11:32 → J7W 11:33 → JINFUSION 12:50
PROVIDERS: ATTEND Internal Medicine Infectious Disease
DX: M86.9 Osteomyelitis, unspecified (principal)
CPT/HCPCS: 96365

== ENCOUNTER 2022-07-17 09:21 | Day surgery (SDC) | payer MEDICARE, OTHER ==
[2022-07-17] MEDS ORDERED: CEFTRIAXONE 2 GM in DEXTROSE 5%-WATER 100 ML IVPB ONE (09:45)
[2022-07-17 11:09] VITALS: BP 150/86; PULSE 58; RESP 18; TEMP 98.6
== END 2022-07-17 11:50 | disposition home or self-care (01) ==
LOC: JINFUSION 09:21 → J7W 09:22 → JINFUSION 11:50
PROVIDERS: ATTEND Internal Medicine Infectious Disease
DX: M86.9 Osteomyelitis, unspecified (principal)
CPT/HCPCS: 96365

== ENCOUNTER 2022-07-18 07:55 | Day surgery (SDC) | payer MEDICARE, OTHER ==
[2022-07-18] MEDS ORDERED: CEFTRIAXONE 2 GM in DEXTROSE 5%-WATER 100 ML IVPB ONE (08:45)
[2022-07-18 11:42] VITALS: BP 130/73; PULSE 75; RESP 20; TEMP 98.3
== END 2022-07-18 11:42 | disposition home or self-care (01) ==
LOC: JINFUSION 07:55 → J7W 07:55 → JINFUSION 11:42
PROVIDERS: ATTEND Internal Medicine Infectious Disease
DX: M86.9 Osteomyelitis, unspecified (principal)
CPT/HCPCS: 96365

== ENCOUNTER 2022-07-19 07:37 | Day surgery (SDC) | payer MEDICARE, OTHER ==
[2022-07-19] MEDS ORDERED: CEFTRIAXONE 2 GM in DEXTROSE 5%-WATER 100 ML IVPB ONE ×2 (08:00→08:15)
[2022-07-19 08:53] VITALS: BP 135/70; PULSE 73; RESP 18
== END 2022-07-19 09:08 | disposition home or self-care (01) ==
LOC: JINFUSION 07:37 → J7W 07:37 → JINFUSION 09:08
PROVIDERS: ATTEND Internal Medicine Infectious Disease
DX: M86.9 Osteomyelitis, unspecified (principal)
CPT/HCPCS: 96365

== ENCOUNTER 2022-07-20 08:55 | Day surgery (SDC) | payer MEDICARE, OTHER ==
[2022-07-20] MEDS ORDERED: CEFTRIAXONE 2 GM in DEXTROSE 5%-WATER 100 ML IVPB ONE (09:30)
[2022-07-20 11:03] VITALS: RESP 18
[2022-07-20 12:15] VITALS: BP 157/75; TEMP 98
[2022-07-20 12:17] VITALS: PULSE 88
== END 2022-07-20 13:03 | disposition home or self-care (01) ==
LOC: JINFUSION 08:55 → J7W 08:55 → JINFUSION 13:03
PROVIDERS: ATTEND Internal Medicine Infectious Disease
PROC: 3E013GC Introduction of Other Therapeutic Substance into Subcutaneous Tissue, Percutaneous Approach (ICD-10-PCS; principal; 2022-07-20)
DX: M86.9 Osteomyelitis, unspecified (principal)
CPT/HCPCS: 96365

== ENCOUNTER → 2022-07-24 | Day surgery (SDC) | payer MEDICARE, OTHER | END | disposition home or self-care (01) | LOC: JRADIR 10:41 | PROVIDERS: ATTEND Internal Medicine Infectious Disease | PROC: 05PY03Z Removal of Infusion Device from Upper Vein, Open Approach (ICD-10-PCS; principal; 2022-07-24) | DX: Z45.2 Encounter for adjustment and management of vascular access device (principal) | CPT/HCPCS: 36589 ==